=== PATIENT | female | born 1985 | race Caucasian/White ===

== ENCOUNTER 2018-02-06 19:51 | Emergency (ER) | payer OTHER ==
[2018-02-06 20:54] LABS: Absolute Lymphocytes (CBC) 2.1 K/uL (0.7-4.9); Absolute Neutrophil 8.8 K/uL (1.8-8.0); Basophils % 0.6 % (0-1.3); Eosinophils % 0.1 % (0-4.4); Hematocrit 59.6 % (36.0-45.0); Lymphocytes % 17.8 % (15.3-44.8); MCH 31.5 pg (27.0-35.0); MCV 92.2 fL (80-100); MPV 9.3 fL (7.6-11.3); Monocytes % 8.2 % (3.3-12.3); RBC Red Blood Cell Count 6.46 M/uL (3.86-4.86)
[2018-02-06] MEDS ORDERED: DICYCLOMINE HCL 10 MG CAP ONE (21:09)
[2018-02-06] MEDS ORDERED: ONDANSETRON 4 MG/2 ML VIAL ONE (21:10)
[2018-02-06] MEDS ORDERED: NA CHLORIDE 0.9% 1,000 ML ONE ×2 (21:10→22:43)
--- NOTE | 2018-02-06 21:17 | RAD REPORT ---
EXAM DESCRIPTION: US - Abdomen Exam Limited - 02/06/2018 9:00 pm CLINICAL HISTORY: Abdominal pain. COMPARISON: None. FINDINGS: The gallbladder wall is not thickened. A gallstone is not seen. The biliary tree is normal caliber. IMPRESSION: Unremarkable gallbladder ultrasound.
[2018-02-06 21:24] LABS: Albumin 4.5 g/dL (3.4-5.0); Bilirubin Direct 0.3 mg/dL (0-0.2); Bilirubin Total 1.1 mg/dL (0.2-1.0); Potassium 3.3 mmol/L (3.5-5.1); Protein, Total 8.4 g/dL (6.4-8.2)
[2018-02-06] MEDS ORDERED: PROMETHAZINE 25 MG/ML VIAL ONE (22:43)
--- NOTE | 2018-02-06 23:34 | ER ---
Nurse's Notes [facility] Name: Rochelle Weir Age: 32 yrs Sex: Female : 1985 Arrival Date: 02/06/2018 Time: 20:04 Bed 17 Private MD: Diagnosis: Vomiting, unspecified;Diarrhea, unspecified Presentation: 02/06 20:20 Presenting complaint: Patient states: Reports upper abdominal pain with N/V for 1 week. aj Transition of care: patient was not received from another setting of care. Onset of symptoms was January 30, 2018. Risk Assessment: Do you want to hurt yourself or someone else? Patient reports no desire to harm self or others. Initial Sepsis Screen: Does the patient meet any 2 criteria? No. Patient's initial sepsis screen is negative. Does the patient have a suspected source of infection? No. Patient's initial sepsis screen is negative. Care prior to arrival: None. 20:20 Method Of Arrival: Ambulatory aj 20:20 Acuity: TRAV 3 aj Triage Assessment: 20:21 General: Appears in no apparent distress. comfortable, Behavior is calm, cooperative, aj appropriate for age. Pain: Complains of pain in right upper quadrant and left upper quadrant. Neuro: Level of Consciousness is awake, alert, obeys commands, Oriented to person, place, time, situation, Appropriate for age. Respiratory: Airway is patent Respiratory effort is even, unlabored, Respiratory pattern is regular, symmetrical. GI: Reports upper abdominal pain, nausea, vomiting. GI: Reports diarrhea. Derm: Skin is intact, is healthy with good turgor, Skin is pink, warm \T\ dry. normal. 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 - Social history:: Smoking status: Patient uses tobacco products, smokes one pack cigarettes per day. Patient uses alcohol, on a daily basis. - Ebola Screening: : Patient negative for fever greater than or equal to 101.5 degrees Fahrenheit, and additional compatible Ebola Virus Disease symptoms Patient denies exposure to infectious person Patient denies travel to an Ebola-affected area in the 21 days before illness onset No symptoms or risks identified at this time. Screenin:43 Abuse screen: Denies threats or abuse. Nutritional screening: No deficits noted. jd3 Tuberculosis screening: No symptoms or risk factors identified. Fall Risk IV access (20 points). Ambulatory Aid- None/Bed Rest/Nurse Assist (0 pts). Gait- Normal/Bed Rest/Wheelchair (0 pts) Mental Status- Oriented to own ability (0 pts). Total Palmer Fall Scale indicates No Risk (0-24 pts). Assessment: 20:41 General: Appears in no apparent distress. uncomfortable, Behavior is calm, cooperative, jd3 appropriate for age. Pain: Complains of pain in abdomen and left upper quadrant and right upper quadrant Quality of pain is described as crampy. Neuro: Level of Consciousness is awake, alert, obeys commands, Oriented to person, place, time, situation. Cardiovascular: Capillary refill < 3 seconds Patient's skin is warm and dry. Respiratory: Airway is patent Respiratory effort is even, unlabored, Respiratory pattern is regular, symmetrical. GI: Abdomen is round non-distended, Bowel sounds present X 4 quads. Abd is soft X 4 quads Reports upper abdominal pain, diarrhea, nausea, vomiting. : No signs and/or symptoms were reported regarding the genitourinary system. EENT: No signs and/or symptoms were reported regarding the EENT system. Derm: Skin is intact, Skin is dry, Skin is normal, Skin temperature is warm. Musculoskeletal: Circulation, motion, and sensation intact. Range of motion: intact in all extremities. 21:09 Reassessment: Patient appears in no apparent distress at this time. Patient and/or jd3 family updated on plan of care and expected duration. Pain level reassessed. Patient is alert, oriented x 3, equal unlabored respirations, skin warm/dry/pink. 22:06 Reassessment: Patient appears in no apparent distress at this time. Patient and/or jd3 family updated on plan of care and expected duration. Pain level reassessed. Patient is alert, oriented x 3, equal unlabored respirations, skin warm/dry/pink. 23:17 Reassessment: Patient appears in no apparent distress at this time. Patient and/or jd3 family updated on plan of care and expected duration. Pain level reassessed. Patient is alert, oriented x 3, equal unlabored respirations, skin warm/dry/pink. Patient states feeling better. 02/07 00:15 Reassessment: Patient appears in no apparent distress at this time. Patient and/or jd3 family updated on plan of care and expected duration. Pain level reassessed. Patient is alert, oriented x 3, equal unlabored respirations, skin warm/dry/pink. Patient states feeling better. Vital Signs: 02/06 20:21 BP 135 / 92; Pulse 69; Resp 20; Temp 99.4; Pulse Ox 99% on R/A; Weight 83.91 kg; Height aj 5 ft. 6 in. (167.64 cm); 21:12 BP 126 / 83; Pulse 69; Resp 17 S; Pulse Ox 98% ; jd3 22:06 BP 124 / 92; Pulse 65; Resp 18 S; Pulse Ox 98% on R/A; jd3 23:17 BP 128 / 78; Pulse 72; Resp 16 S; Pulse Ox 98% on R/A; Pain 4/10; jd3 20:21 Body Mass Index 29.86 (83.91 kg, 167.64 cm) aj ED Course: 20:04 Patient arrived in ED. am2 20:20 Triage completed. aj 20:21 Arm band placed on right wrist. aj 20:25 Torrey Grimaldo, RN is Primary Nurse. jd3 20:26 Verónica Espinal FNP-C is PHCP. snw 20:26 Elmo Lopez MD is Attending Physician. snw 20:35 Inserted saline lock: 20 gauge in right antecubital area, using aseptic technique. jd3 Blood collected. 20:43 Patient has correct armband on for positive identification. Bed in low position. Call jd3 light in reach. Side rails up X 1. Adult w/ patient. 20:53 Ultrasound completed. Patient tolerated well. Patient moved back from ultrasound. cy 21:01 US Abdomen Limited In Process Unspecified. EDMS 02/07 00:14 No provider procedures requiring assistance completed. IV discontinued, intact, jd3 bleeding controlled, No redness/swelling at site. Pressure dressing applied. Administered Medications: 02/06 21:07 Drug: NS 0.9% 1000 ml Route: IV; Rate: 1 bolus; Site: right antecubital; jd3 23:47 Follow up: Response: No adverse reaction; IV Status: Completed infusion jd3 21:07 Drug: Bentyl 20 mg Route: PO; jd3 23:48 Follow up: Response: No adverse reaction jd3 21:08 Drug: Zofran 4 mg Route: IVP; Site: right antecubital; jd3 23:47 Follow up: Response: No adverse reaction jd3 22:40 Drug: NS 0.9% 1000 ml Route: IV; Rate: 1 bolus; Site: right antecubital; cc3 23:48 Follow up: Response: No adverse reaction; IV Status: Completed infusion jd3 22:40 Drug: Phenergan 25 mg Route: IVP; Site: right antecubital; cc3 23:48 Follow up: Response: No adverse reaction jd3 23:47 Drug: TORadol 30 mg Route: IVP; Site: right antecubital; jd3 23:48 Follow up: Response: No adverse reaction jd3 Outcome: 23:34 Discharge ordered by MD. barrett 02/07 00:14 Discharged to home ambulatory, with family. jd3 Condition: stable Discharge instructions given to patient, family, Instructed on discharge instructions, follow up and referral plans. medication usage, Demonstrated understanding of instructions, follow-up care, medications, Prescriptions given X 2. 00:15 Patient left the ED. jd3 Signatures: Dispatcher [employer] Renetta Rossi, RN Verónica Reich, PROFESSOR OF SPANISH-C PROFESSOR OF SPANISH-Csnw Renetta Boyer amTorrey Roberson RN RN jd3 Yong, Chheannith cy Cordel, Charlene cc3 Corrections: (The following items were deleted from the chart) 02/06 23:19 23:17 BP 128 / 78; Pulse 72bpm; Resp 16bpm; Spontaneous; Pulse Ox 98% RA; jd3 jd3
--- NOTE | 2018-02-06 23:35 | EDPHYS ---
Physician Documentation [facility] Name: Rochelle Weir Age: 32 yrs Sex: Female : 1985 Arrival Date: 02/06/2018 Time: 20:04 Bed 17 Private MD: ED Physician Elmo Lopez HPI: 02/06 20:48 This 32 yrs old Female presents to ER via Ambulatory with complaints of snw Vomiting, Abdominal Pain. 20:48 The patient presents to the emergency department with nausea, vomiting, diarrhea, snw abdominal pain, described as crampy. Onset: The symptoms/episode began/occurred suddenly, 4 day(s) ago, and became persistent. Possible causes: unknown. The symptoms are aggravated by food . Severity of symptoms: At their worst the symptoms were moderate in the emergency department the symptoms are unchanged. The patient has not experienced similar symptoms in the past. The patient has not recently seen a physician. 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 - Social history:: Smoking status: Patient uses tobacco products, smokes one pack cigarettes per day. Patient uses alcohol, on a daily basis. - Ebola Screening: : Patient negative for fever greater than or equal to 101.5 degrees Fahrenheit, and additional compatible Ebola Virus Disease symptoms Patient denies exposure to infectious person Patient denies travel to an Ebola-affected area in the 21 days before illness onset No symptoms or risks identified at this time. ROS: 20:48 Constitutional: Negative for fever, chills, and weight loss, Eyes: Negative for injury, snw pain, redness, and discharge, ENT: Negative for injury, pain, and discharge, Neck: Negative for injury, pain, and swelling, Cardiovascular: Negative for chest pain, palpitations, and edema, Respiratory: Negative for shortness of breath, cough, wheezing, and pleuritic chest pain, Abdomen/GI: Positive for abdominal pain, nausea, vomiting, diarrhea, negative for constipation, Back: Negative for injury and pain, : Negative for injury, bleeding, discharge, and swelling, MS/Extremity: Negative for injury and deformity, Skin: Negative for injury, rash, and discoloration, Neuro: Negative for headache, weakness, numbness, tingling, and seizure. Exam: 20:50 Constitutional: This is a well developed, well nourished patient who is awake, alert, snw and in no acute distress. Head/Face: Normocephalic, atraumatic. Eyes: Pupils equal round and reactive to light, extra-ocular motions intact. Lids and lashes normal. Conjunctiva and sclera are non-icteric and not injected. Cornea within normal limits. Periorbital areas with no swelling, redness, or edema. ENT: Nares patent. No nasal discharge, no septal abnormalities noted. Tympanic membranes are normal and external auditory canals are clear. Oropharynx with no redness, swelling, or masses, exudates, or evidence of obstruction, uvula midline. Mucous membranes moist. Neck: Trachea midline, no thyromegaly or masses palpated, and no cervical lymphadenopathy. Supple, full range of motion without nuchal rigidity, or vertebral point tenderness. No Meningismus. Chest/axilla: Normal chest wall appearance and motion. Nontender with no deformity. No lesions are appreciated. Cardiovascular: Regular rate and rhythm with a normal S1 and S2. No gallops, murmurs, or rubs. Normal PMI, no JVD. No pulse deficits. Respiratory: Lungs have equal breath sounds bilaterally, clear to auscultation and percussion. No rales, rhonchi or wheezes noted. No increased work of breathing, no retractions or nasal flaring. Back: No spinal tenderness. No costovertebral tenderness. Full range of motion. Skin: Warm, dry with normal turgor. Normal color with no rashes, no lesions, and no evidence of cellulitis. MS/ Extremity: Pulses equal, no cyanosis. Neurovascular intact. Full, normal range of motion. Neuro: Awake and alert, GCS 15, oriented to person, place, time, and situation. Cranial nerves II-XII grossly intact. Motor strength 5/5 in all extremities. Sensory grossly intact. Cerebellar exam normal. Normal gait. Psych: Awake, alert, with orientation to person, place and time. Behavior, mood, and affect are within normal limits. 20:50 Abdomen/GI: Inspection: abdomen appears normal, Bowel sounds: hyperactive, in all quadrants, Palpation: mild abdominal tenderness, in the right upper quadrant and left upper quadrant. Vital Signs: 20:21 BP 135 / 92; Pulse 69; Resp 20; Temp 99.4; Pulse Ox 99% on R/A; Weight 83.91 kg; Height aj 5 ft. 6 in. (167.64 cm); 21:12 BP 126 / 83; Pulse 69; Resp 17 S; Pulse Ox 98% ; jd3 22:06 BP 124 / 92; Pulse 65; Resp 18 S; Pulse Ox 98% on R/A; jd3 23:17 BP 128 / 78; Pulse 72; Resp 16 S; Pulse Ox 98% on R/A; Pain 4/10; jd3 20:21 Body Mass Index 29.86 (83.91 kg, 167.64 cm) aj MDM: 20:26 Patient medically screened. snw 20:53 Data reviewed: vital signs, nurses notes. Data interpreted: Pulse oximetry: on room air snw is 99 %. Interpretation: normal. ED course: US of gallbladder negative. 23:35 Counseling: I had a detailed discussion with the patient and/or guardian regarding: the snw historical points, exam findings, and any diagnostic results supporting the discharge/admit diagnosis, the presence of at least one elevated blood pressure reading (>120/80) during this emergency department visit, lab results, radiology results, the need for outpatient follow up, to return to the emergency department if symptoms worsen or persist or if there are any questions or concerns that arise at home. Special discussion: Based on the patient's Hx, exam, and Dx evaluation, there is no indication for emergent surgery or inpatient Tx. It is understood by the patient/guardian that if the Sx's persist or worsen they need to return immediately for re-evaluation. Based on the history and exam findings, there is no indication for further emergent testing or inpatient evaluation. I discussed with the patient/guardian the need to see the primary care provider for further evaluation of the symptoms. 02/06 20:25 Order name: Basic Metabolic Panel; Complete Time: 21:26 snw 02/06 20:25 Order name: CBC with Diff; Complete Time: 20:58 snw 02/06 20:25 Order name: US Abdomen Limited; Complete Time: 21:20 snw 02/06 20:25 Order name: Hepatic Function; Complete Time: 21:26 snw 02/06 20:25 Order name: Lipase; Complete Time: 21:27 snw 02/06 20:25 Order name: IV Saline Lock; Complete Time: 20:44 snw 02/06 20:25 Order name: Labs collected and sent; Complete Time: 20:44 snw Administered Medications: 21:07 Drug: NS 0.9% 1000 ml Route: IV; Rate: 1 bolus; Site: right antecubital; jd3 23:47 Follow up: Response: No adverse reaction; IV Status: Completed infusion jd3 21:07 Drug: Bentyl 20 mg Route: PO; jd3 23:48 Follow up: Response: No adverse reaction jd3 21:08 Drug: Zofran 4 mg Route: IVP; Site: right antecubital; jd3 23:47 Follow up: Response: No adverse reaction jd3 22:40 Drug: NS 0.9% 1000 ml Route: IV; Rate: 1 bolus; Site: right antecubital; cc3 23:48 Follow up: Response: No adverse reaction; IV Status: Completed infusion jd3 22:40 Drug: Phenergan 25 mg Route: IVP; Site: right antecubital; cc3 23:48 Follow up: Response: No adverse reaction jd3 23:47 Drug: TORadol 30 mg Route: IVP; Site: right antecubital; jd3 23:48 Follow up: Response: No adverse reaction jd3 Disposition: 02/07 04:10 Co-signature as Attending Physician, Elmo Lopez MD. Disposition: 02/06/18 23:34 Discharged to Home. Impression: Vomiting, unspecified, Diarrhea, unspecified. - Condition is Stable. - Discharge Instructions: Food Choices to Help Relieve Diarrhea, Adult, Dehydration, Adult, Diarrhea, Adult, Nausea and Vomiting, Adult, Rehydration, Adult. - Prescriptions for Bentyl 20 mg Oral Tablet - take 1 tablet by ORAL route every 6 hours As needed; 20 tablet. Zofran 4 mg Oral Tablet - take 1 tablet by ORAL route every 12 hours As needed; 20 tablet. - Work release form, Medication Reconciliation Form, Thank You Letter, Antibiotic Education, Prescription Opioid Use form. - Follow up: Private Physician; When: 2 - 3 days; Reason: Recheck today's complaints, Continuance of care, Re-evaluation by your physician. Follow up: Emergency Department; When: As needed; Reason: Worsening of condition. Signatures: Dispatcher [employer] Renetta Rossi, RN Verónica Reich, NARCISA MORAN-Elmo Nnuez MD MD gs Davies, Jonathon, RN RN jDestinee Longoria cc3 Corrections: (The following items were deleted from the chart) 00:15 02/06 23:34 02/06/2018 23:34 Discharged to Home. Impression: Vomiting, unspecified; jd3 Diarrhea, unspecified. Condition is Stable. Forms are Medication Reconciliation Form, Thank You Letter, Antibiotic Education, Prescription Opioid Use. Follow up: Private Physician; When: 2 - 3 days; Reason: Recheck today's complaints, Continuance of care, Re-evaluation by your physician. Follow up: Emergency Department; When: As needed; Reason: Worsening of condition. snw
[2018-02-06] MEDS ORDERED: KETOROLAC 30 MG/ML INJ ONE (23:51)
== END 2018-02-07 00:15 | disposition home or self-care (01) ==
LOC: ER 19:51
DX: R19.7 Diarrhea, unspecified (principal); F17.210 Nicotine dependence, cigarettes, uncomplicated
CPT/HCPCS: 36415; 76705; 80048; 80076; 83690; 85025; 96361; 96374; 96375; 99284; J2405; J2550; J7030

== ENCOUNTER 2019-06-12 10:29 | Emergency (ER) | payer OTHER ==
[2019-06-12] MEDS ORDERED: NA CHLORIDE 0.9% 1,000 ML ONE (10:59)
[2019-06-12] MEDS ORDERED: PROMETHAZINE INJ 25 MG/ML AMP ONE (10:59)
[2019-06-12 11:06] LABS: Absolute Lymphocytes (CBC) 1.6 K/uL (0.7-4.9); Basophils % 0.3 % (0-1.3); Lymphocytes % 11.3 % (15.3-44.8); MPV 8.6 fL (7.6-11.3); RBC Red Blood Cell Count 5.77 M/uL (3.86-4.86)
[2019-06-12 11:17] LABS: Urine Blood 2+ (NEG); Urine Glucose NEGATIVE (NEG); Urine Protein 1+ (NEG); Urine pH 7.5 (5.0-7.0)
[2019-06-12 11:22] LABS: Urine Bacteria >50 /HPF (<20); Urine Culture Reflex Order REFLEXED; Urine Mucus 3+ /HPF (NONE SEEN); Urine RBC NONE SEEN /HPF (NONE SEEN)
[2019-06-12 11:34] LABS: Albumin 4.1 g/dL (3.4-5.0); Bilirubin Direct 0.1 mg/dL (0-0.2); Bilirubin Total 0.4 mg/dL (0.2-1.0); Potassium 3.7 mmol/L (3.5-5.1); Protein, Total 7.6 g/dL (6.4-8.2)
--- NOTE | 2019-06-12 13:03 | RAD REPORT ---
EXAM DESCRIPTION: US - Transvaginal OB - 06/12/2019 12:37 pm CLINICAL HISTORY: Abd pain, + preg test here, tubal ligation, rule out ectopi COMPARISON: No comparisons TECHNIQUE: Endovaginal and limited transabdominal sonography performed. FINDINGS: Uterus is normal size. No myometrial mass. Endometrial stripe is 3 mm. No gestational sac or sac remnant. No hematoma or other endometrial finding. No blood or fluid in the cul de sac. Bilateral ovaries are identifiable with normal blood flow. No evidence for ectopic . IMPRESSION: Negative pelvic ultrasound. No evidence for intrauterine or extrauterine at th is time. Correlation can be made with serial beta HCG values with follow-up sonography as warranted.
--- NOTE | 2019-06-12 13:16 | ER ---
Nurse's Notes [facility] Name: Rochelle Weir Age: 33 yrs Sex: Female : 1985 Arrival Date: 06/12/2019 Time: 10:31 Bed 17 Private MD: Diagnosis: Vomiting, unspecified;Ectopic , unspecified Presentation: 06/11 10:32 Chief complaint: Patient states: Abdominal pain, all over, started this morning. ca1 Reports N/diarrhea. Coronavirus screen: Patient denies fever greater than 100.4F, cough, shortness of breath, or difficulty breathing. Proceed with normal triage process. Ebola Screen: Patient negative for fever greater than or equal to 101.5 degrees Fahrenheit, and additional compatible Ebola Virus Disease symptoms Patient denies exposure to infectious person. Patient denies travel to an Ebola-affected area in the 21 days before illness onset. No symptoms or risks identified at this time. Initial Sepsis Screen: Does the patient meet any 2 criteria? No. Patient's initial sepsis screen is negative. Does the patient have a suspected source of infection? No. Patient's initial sepsis screen is negative. Risk Assessment: Do you want to hurt yourself or someone else? Patient reports no desire to harm self or others. Onset of symptoms was June 12, 2019. 10:32 Method Of Arrival: Ambulatory ca1 10:32 Acuity: TRAV 3 ca1 Triage Assessment: 10:35 General: Appears in no apparent distress. uncomfortable, Behavior is agitated, anxious. bp Pain: Complains of pain in abdomen. EENT: No deficits noted. Neuro: No deficits noted. Cardiovascular: No deficits noted. Respiratory: No deficits noted. GI: Abdomen is non-distended, Reports nausea, vomiting, PT CLAIMS TO BE VOMITING, BUT ONLY SPITTING IN TRASH CAN WHILE MAKING RETCHING NOISES. : No signs and/or symptoms were reported regarding the genitourinary system. Derm: No deficits noted. Musculoskeletal: No deficits noted. 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 - Social history:: Smoking status: Patient reports the use of cigarette tobacco products, smokes one pack cigarettes per day. - Family history:: not pertinent. - Hospitalizations: : No recent hospitalization is reported. Screenin:35 Abuse screen: Denies threats or abuse. Denies injuries from another. Nutritional bp screening: No deficits noted. Tuberculosis screening: No symptoms or risk factors identified. Fall Risk None identified. Assessment: 10:35 General: SEE TRIAGE NOTE. bp 11:28 Reassessment: ADDITIONAL LABS IN PROCESS. VS STABLE ON MONITOR. bp 12:49 Reassessment: PT RETURNED FROM U/S. bp 13:09 Reassessment: PT REFUSING VS MONITORING. OB C/S PENDING FOR DISPO. bp 13:26 Reassessment: CONSENT FOR METHOTREXATE SIGNED AND WITNESSED. bp 14:23 Reassessment: PT D/C HOME AMBULATORY WITH SPOUSE, DX WITH ECTOPIC . TRANSPORT bp PENDING. Vital Signs: 10:32 BP 126 / 88; Pulse 86; Resp 17 S; Temp 97.1(TE); Pulse Ox 99% on NC; Weight 72.57 kg ca1 (R); Height 5 ft. 6 in. (167.64 cm) (R); Pain 9/10; 11:27 BP 113 / 88; Pulse 83; Resp 16; Pulse Ox 95% ; bp 13:00 bp 14:23 BP 127 / 75; Pulse 79; Resp 17; Temp 97.1; Pulse Ox 97% ; bp 10:32 Body Mass Index 25.82 (72.57 kg, 167.64 cm) ca1 13:00 PT REFUSING VS bp ED Course: 10:31 Patient arrived in ED. ag5 10:32 Arm band placed on right wrist. ca1 10:34 Triage completed. ca1 10:35 Patient has correct armband on for positive identification. Bed in low position. Call bp light in reach. Side rails up X2. 10:39 Mynor Gregory, RADHA is Primary Nurse. bp 10:42 Kwabena Fink MD is Attending Physician. rn 10:45 Inserted saline lock: 22 gauge in left antecubital area, using aseptic technique. Blood bp collected. 12:37 US Transvaginal Ob In Process Unspecified. EDMS 13:07 Inserted saline lock: 20 gauge in right forearm, using aseptic technique. Blood bp collected. 13:15 Morgan Carlson MD is Referral Physician. rn 14:23 No provider procedures requiring assistance completed. IV discontinued, intact, bp bleeding controlled, No redness/swelling at site. Pressure dressing applied. Administered Medications: 10:55 Drug: NS 0.9% 1000 ml Route: IV; Rate: 1000 ml; Site: left antecubital; bp 14:26 Follow up: IV Status: Completed infusion; IV Intake: 1000ml bp 10:55 Drug: Phenergan 12.5 mg Route: IVP; Site: left antecubital; bp 13:09 Follow up: Response: Nausea is decreased bp 13:22 Drug: Zofran (Ondansetron) 4 mg Route: IVP; Site: right forearm; bp 13:45 Follow up: Response: Nausea is decreased bp 13:44 Drug: Methotrexate 75 mg Route: IM; Site: left gluteus; bp 14:25 Follow up: Response: No adverse reaction bp Intake: 14:26 IV: 1000ml; Total: 1000ml. bp Outcome: 13:15 Discharge ordered by MD. rn 14:23 Discharged to home ambulatory, with family. bp 14:23 Condition: stable 14:23 Discharge instructions given to patient, Instructed on discharge instructions, follow up and referral plans. medication usage, Demonstrated understanding of instructions, follow-up care, medications, Prescriptions given X 1. 14:44 Patient left the ED. bp Signatures: Dispatcher [employer] EDMS Kwabena Fink MD MD rn Peltier, Brian, RN RN bp Acob, Cheryl, RN RN ca1 Gaskin, Ajare ag5
--- NOTE | 2019-06-12 13:16 | EDPHYS ---
Physician Documentation [facility] Name: Rochelle Weir Age: 33 yrs Sex: Female : 1985 Arrival Date: 06/12/2019 Time: 10:31 Bed 17 Private MD: ED Physician Kwabena Fink HPI: 06/11 11:20 This 33 yrs old Female presents to ER via Ambulatory with complaints of rn Abdominal Pain, nausea/vomiting/diarrhea. 11:20 The patient presents to the emergency department with nausea, vomiting, diarrhea, rn abdominal pain, of the suprapubic area. Onset: The symptoms/episode began/occurred yesterday. Possible causes: unknown. The symptoms are aggravated by nothing. The symptoms are alleviated by nothing. Severity of symptoms: At their worst the symptoms were moderate in the emergency department the symptoms have improved. The patient has not experienced similar symptoms in the past. Reports abdominal pain, suprapubic, crampy, now improved, + nausea and vomiting, + some diarrhea, no fever, no trauma. Reports tubal ligation, was 2 weeks late on her period, but then bled for a few days longer than normal. No vaginal discharge. . 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 - Social history:: Smoking status: Patient reports the use of cigarette tobacco products, smokes one pack cigarettes per day. - Family history:: not pertinent. - Hospitalizations: : No recent hospitalization is reported. ROS: 11:20 Constitutional: Negative for fever, chills, and weight loss, Eyes: Negative for injury, rn pain, redness, and discharge, ENT: Negative for injury, pain, and discharge, Neck: Negative for injury, pain, and swelling, Cardiovascular: Negative for chest pain, palpitations, and edema, Respiratory: Negative for shortness of breath, cough, wheezing, and pleuritic chest pain, Abdomen/GI: + lower abd pain, + nausea/vomiting/diarrhea MS/Extremity: Negative for injury and deformity, Skin: Negative for injury, rash, and discoloration, Neuro: Negative for headache, weakness, numbness, tingling, and seizure. Exam: 11:20 Constitutional: This is a well developed, well nourished patient who is awake, alert, rn vomiting Head/Face: Normocephalic, atraumatic. ENT: MMM Cardiovascular: Regular rate and rhythm. No pulse deficits. Respiratory: Speaking full sentences. No increased work of breathing, no retractions or nasal flaring. Abdomen/GI: soft, + mild suprapubic tenderness, no rebound Skin: Warm, dry MS/ Extremity: Pulses equal, no cyanosis. Neurovascular intact. Full, normal range of motion. Equal circumference. Neuro: Awake and alert, GCS 15 Vital Signs: 10:32 BP 126 / 88; Pulse 86; Resp 17 S; Temp 97.1(TE); Pulse Ox 99% on NC; Weight 72.57 kg ca1 (R); Height 5 ft. 6 in. (167.64 cm) (R); Pain 9/10; 11:27 BP 113 / 88; Pulse 83; Resp 16; Pulse Ox 95% ; bp 13:00 bp 14:23 BP 127 / 75; Pulse 79; Resp 17; Temp 97.1; Pulse Ox 97% ; bp 10:32 Body Mass Index 25.82 (72.57 kg, 167.64 cm) ca1 13:00 PT REFUSING VS bp MDM: 10:42 Patient medically screened. rn 13:13 Differential diagnosis: viral gastroenteritis, ectopic . Data reviewed: vital rn signs, nurses notes, lab test result(s), radiologic studies, ultrasound, and as a result, I will discharge patient. Counseling: I had a detailed discussion with the patient and/or guardian regarding: the historical points, exam findings, and any diagnostic results supporting the discharge/admit diagnosis, lab results, radiology results, the need for outpatient follow up, to return to the emergency department if symptoms worsen or persist or if there are any questions or concerns that arise at home. Special discussion: I discussed with the patient/guardian in detail that at this point there is no indication for admission to the hospital. It is understood, however, that if the symptoms persist or worsen the patient needs to return immediately for re-evaluation. Based on the history and exam findings, there is no indication for further emergent testing or inpatient evaluation. I discussed with the patient/guardian the need to see the OB Gyne specialist for further evaluation of the symptoms. ED course: Consulted with Dr. Carlson, who recommends Methotrexate given has had tubal ligation and even though u/s negative most likely indicated ectpic . patient does not wish to be , consented for methotrexate, and will give methotrexate. Plan is to f/u with Dr. Carlson on Saturday/Saturday to reeval and trend beta-hcg.. 06/11 10:47 Order name: Basic Metabolic Panel; Complete Time: 12:20 06/11 10:47 Order name: CBC with Diff; Complete Time: 11:19 rn 06/11 10:47 Order name: Creatinine for Radiology; Complete Time: 11:19 06/11 10:47 Order name: Hepatic Function; Complete Time: 12:20 06/11 10:47 Order name: Lipase; Complete Time: 12:20 06/11 10:47 Order name: Urine Microscopic Only; Complete Time: 12:20 06/11 11:13 Order name: HCG, Quantitative; Complete Time: 12:20 [facility] 06/11 11:14 Order name: Urine Dipstick--Ancillary (enter results); Complete Time: 11:19 06/11 11:14 Order name: Urine --Ancillary (enter results); Complete Time: 11:19 06/11 11:23 Order name: Urine Culture [facility] 06/11 11:27 Order name: US Transvaginal Ob; Complete Time: 13:07 06/11 12:43 Order name: Abo/rh Typing 06/11 14:01 Order name: ABO/RH no charge [facility] 06/11 10:47 Order name: IV Saline Lock; Complete Time: 10:51 06/11 10:47 Order name: Labs collected and sent; Complete Time: 10:51 rn 06/11 10:47 Order name: Urine Test (obtain specimen); Complete Time: 11: 06/11 10:47 Order name: Urine Dipstick-Ancillary (obtain specimen); Complete Time: 11:01 rn Administered Medications: 10:55 Drug: NS 0.9% 1000 ml Route: IV; Rate: 1000 ml; Site: left antecubital; bp 14:26 Follow up: IV Status: Completed infusion; IV Intake: 1000ml bp 10:55 Drug: Phenergan 12.5 mg Route: IVP; Site: left antecubital; bp 13:09 Follow up: Response: Nausea is decreased bp 13:22 Drug: Zofran (Ondansetron) 4 mg Route: IVP; Site: right forearm; bp 13:45 Follow up: Response: Nausea is decreased bp 13:44 Drug: Methotrexate 75 mg Route: IM; Site: left gluteus; bp 14:25 Follow up: Response: No adverse reaction bp Disposition: 06/12/19 13:15 Discharged to Home. Impression: Vomiting, unspecified, Ectopic , unspecified. - Condition is Stable. - Discharge Instructions: Nausea and Vomiting, Adult, Ectopic , Methotrexate Treatment for an Ectopic . - Prescriptions for Zofran ODT 4 mg Oral tablet,disintegrating - place 1 tablet by TRANSLINGUAL route every 8 hours As needed; 20 tablet. - Medication Reconciliation Form, Thank You Letter, Antibiotic Education, Prescription Opioid Use form. - Follow up: Morgan Carlson MD; When: 1 week; Reason: Recheck today's complaints, Continuance of care, Re-evaluation by your physician. - Problem is new. - Symptoms have improved. Signatures: Dispatcher [employer] [facility] Kwabena Fink MD MD rn Peltier, Brian RN RN Audra Rosado RN RN ca1 Corrections: (The following items were deleted from the chart) 11:14 11:09 QUANTITATIVE HCG+C.LAB.BRZ ordered. [facility] 14:44 13:15 06/12/2019 13:15 Discharged to Home. Impression: Vomiting, unspecified; Ectopic bp , unspecified. Condition is Stable. Forms are Medication Reconciliation Form, Thank You Letter, Antibiotic Education, Prescription Opioid Use. Follow up: Morgan Carlson; When: 1 week; Reason: Recheck today's complaints, Continuance of care, Re-evaluation by your physician. Problem is new. Symptoms have improved. rn
[2019-06-12] MEDS ORDERED: ONDANSETRON 4 MG/2 ML VIAL ONE (13:26)
[2019-06-12] MEDS ORDERED: METHOTREXATE 25 MG/ML VIAL IM ONE (13:45)
[2019-06-12 14:54] VITALS: TEMP 97.1
[2019-06-12 14:57] VITALS: BP 127/75; O2SAT 97
== END 2019-06-12 14:44 | disposition home or self-care (01) ==
LOC: ER 10:29
DX: R10.9 Unspecified abdominal pain (principal); R11.10 Vomiting, unspecified; F17.290 Nicotine dependence, other tobacco product, uncomplicated
CPT/HCPCS: 96361; 87088; 85025; 87086; 80048; 36415; 86900; 81025; 86901; 80076; 84702; 83690; 76817; 96375; 96372; 96374; 99284; J2550; J7030; J9260; J2405; 81003; 81015

== ENCOUNTER 2020-05-18 20:40 | Emergency (ER) | payer OTHER ==
--- NOTE | 2020-05-18 22:07 | ER ---
Nurse's Notes [facility] Name: Rochelle Weir Age: 34 yrs Sex: Female : 1985 Arrival Date: 05/18/2020 Time: 20:45 Bed 26 Private MD: Diagnosis: Presentation: 05/18 20:56 Chief complaint: Patient states: My son, me and my has this stomach bug since ca1 Saturday, theirs have cleared up and I am still vomiting until now. Everything I eat and drink I throw right back up. I have constant cramping on my upper belly. Had some diarrhea until Saturday night. 20:56 Method Of Arrival: Ambulatory ca1 20:58 Coronavirus screen: Client denies travel out of the [place] in the last 14 days. diarrhea, ca1 vomiting. Client presents with at least one sign or symptom that may indicate coronavirus-19. Standard/surgical mask placed on the client. Provider contacted for isolation considerations. Ebola Screen: Patient negative for fever greater than or equal to 101.5 degrees Fahrenheit, and additional compatible Ebola Virus Disease symptoms Patient denies exposure to infectious person. Patient denies travel to an Ebola-affected area in the 21 days before illness onset. No symptoms or risks identified at this time. Initial Sepsis Screen: Does the patient meet any 2 criteria? No. Patient's initial sepsis screen is negative. Does the patient have a suspected source of infection? No. Patient's initial sepsis screen is negative. Risk Assessment: Do you want to hurt yourself or someone else? Patient reports no desire to harm self or others. Onset of symptoms was May 18, 2020. 20:58 Acuity: TRAV 3 ca1 22:06 Note Called pt's cell phone, call went to . 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 - Social history:: Smoking status: Patient reports the use of cigarette tobacco products, smokes one pack cigarettes per day. Vital Signs: 20:58 BP 143 / 91; Pulse 63; Resp 16 S; Temp 98.9(TE); Pulse Ox 99% on R/A; Weight 77.11 kg ca1 (R); Height 5 ft. 6 in. (167.64 cm) (R); Pain 7/10; 20:58 Body Mass Index 27.44 (77.11 kg, 167.64 cm) ca1 ED Course: 20:45 Patient arrived in ED. es 21:00 Triage completed. ca1 21:00 Arm band placed on right wrist. ca1 21:37 Moon Jackman FNP-C is PHCP. kb 21:37 Armen Bustillo MD is Attending Physician. kb 22:02 Mark Otto, RN is Primary Nurse. em 22:06 Patient's name was called from ER lobby. No response. Unable to locate patient. Will em disposition as left without being seen by a provider. Administered Medications: No medications were administered Outcome: 22:07 Patient left the ED. em Signatures: Moon Jackman FNP-C FNP-Ckb Salyer, Edna es Munoz, Edgar, RADHA RN em Audra Dickinson RN RN ca1 Corrections: (The following items were deleted from the chart) 21:00 20:56 Chief complaint: Patient states: My son, me and my has this stomach bug ca1 since Saturday, there's cleared up and I am still vomiting until now ca1
[2020-05-19 01:41] VITALS: BP 143/91; TEMP 98.9; O2SAT 99
== END 2020-05-18 22:07 | disposition left against medical advice (07) ==
LOC: ER 20:40
DX: R11.10 Vomiting, unspecified (principal); R10.10 Upper abdominal pain, unspecified; F17.210 Nicotine dependence, cigarettes, uncomplicated; Z53.21 Procedure and treatment not carried out due to patient leaving prior to being seen by health care provider
CPT/HCPCS: 99281

== ENCOUNTER 2021-02-16 06:02 | Emergency (ER) | payer OTHER ==
[2021-02-16] MEDS ORDERED: MORPHINE 4 MG/ML SYR ONE (06:30)
[2021-02-16] MEDS ORDERED: ONDANSETRON 4 MG/2 ML VIAL ONE (06:30)
[2021-02-16] MEDS ORDERED: NA CHLORIDE 0.9% 1,000 ML ONE (06:30)
[2021-02-16 06:38] LABS: Urine Blood Trace-intact (Negative); Urine Glucose Negative (Negative); Urine Protein 1+ (Negative); Urine Specific Gravity 1.025 (1.005-1.030)
[2021-02-16 06:39] LABS: Absolute Lymphocytes (CBC) 2.1 K/uL (0.7-4.9); Basophils % 0.4 % (0-1.3); Hematocrit 59.4 % (36.0-45.0); Lymphocytes % 19.6 % (15.3-44.8); MPV 8.3 fL (7.6-11.3); RBC Red Blood Cell Count 6.04 M/uL (3.86-4.86)
[2021-02-16 06:55] LABS: Albumin 4.3 g/dL (3.4-5.0); Bilirubin Direct 0.2 mg/dL (0-0.2); Bilirubin Total 0.6 mg/dL (0.2-1.0); Potassium 3.6 mmol/L (3.5-5.1); Protein, Total 8.6 g/dL (6.4-8.2)
--- NOTE | 2021-02-16 07:59 | RAD REPORT ---
EXAM DESCRIPTION: CTAbdomen Pelvis W Contrast - 02/16/2021 7:41 am CLINICAL HISTORY: ABD PAIN COMPARISON: No comparisons TECHNIQUE: CT of the abdomen and pelvis was performed. All CT scans are performed using dose optimization technique as appropriate and may include automated exposure control or mA/KV adjustment according to patient size. FINDINGS: Lower chest: No acute abnormality. Liver: No acute abnormality or suspicious lesions. Biliary: No biliary ductal dilatation. Stomach: No significant focal abnormality. Duodenum: No significant focal abnormality. Pancreas: No significant abnormality. Spleen: No significant abnormality. Adrenal: No suspicious lesions. Kidney/ureter: No hydronephrosis. No renal calculi. Retroperitoneum: No retroperitoneal adenopathy. Vascular: No aneurysm. Bowel: No significant focal abnormality. Peritoneum: No ascites or free air. Normal appendix. Bladder: Grossly unremarkable. Reproductive: No adnexal masses. Bones: No acute fracture. Other: n/a IMPRESSION: No acute intra-abdominal or pelvic finding. Normal appendix.
[2021-02-16 08:28] LABS: Urine Specific Gravity/Preg 1.025 (1.005-1.030)
[2021-02-16] MEDS ORDERED: DIPHENHYDRAMINE 50 MG/ML VIAL ONE (08:46)
[2021-02-16] MEDS ORDERED: DICYCLOMINE HCL 20 MG/2 ML AMP IM ONE (08:46)
[2021-02-16] MEDS ORDERED: METOCLOPRAMIDE 10 MG/2mL INJ ONE (08:46)
--- NOTE | 2021-02-16 09:07 | ER ---
Nurse's Notes [facility] Name: Rochelle Weir Age: 35 yrs Sex: Female : 1985 Arrival Date: 02/16/2021 Time: 06:04 Bed 17 Private MD: Diagnosis: Abdominal pain, unspecified;Vomiting Presentation: 02/16 06:19 Chief complaint: Patient states: she started having abdominal pain, vomiting, and bb diarrhea since yesterday pain is in the epigastric area and is 10/10. Coronavirus screen: At this time, the client does not indicate any symptoms associated with coronavirus-19. Ebola Screen: No symptoms or risks identified at this time. Initial Sepsis Screen: Does the patient meet any 2 criteria? No. Patient's initial sepsis screen is negative. Does the patient have a suspected source of infection? No. Patient's initial sepsis screen is negative. Risk Assessment: Do you want to hurt yourself or someone else? Patient reports no desire to harm self or others. Onset of symptoms was February 15, 2021. 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 - Social history:: Smoking status: Patient reports the use of cigarette tobacco products, smokes one pack cigarettes per day. Screenin:15 Abuse screen: Denies threats or abuse. Nutritional screening: No deficits noted. bb Tuberculosis screening: No symptoms or risk factors identified. Fall Risk None identified. Assessment: 06:15 General: Appears uncomfortable, ill, Behavior is cooperative, anxious. Pain: Complains bb of pain in epigastric area Pain currently is 10 out of 10 on a pain scale. Neuro: Level of Consciousness is awake, alert, obeys commands, Oriented to person, place, time, situation. Cardiovascular: Capillary refill < 3 seconds Patient's skin is warm and dry. Respiratory: Airway is patent Respiratory effort is even, unlabored, Respiratory pattern is regular. GI: Bowel sounds present X 4 quads. Abd is soft X 4 quads. Derm: Skin is pink, warm \T\ dry. Musculoskeletal: Circulation, motion, and sensation intact. Vital Signs: 06:11 BP 157 / 106; Pulse 73; Resp 16; Temp 97.8; Pulse Ox 98% ; lt3 06:19 BP 140 / 102; Pulse 62; Resp 18 S; Temp 98.1(O); Pulse Ox 98% on R/A; Weight 74.84 kg bb (R); Height 5 ft. 6 in. (167.64 cm) (R); Pain 10/10; 06:59 BP 131 / 89; Pulse 86; Resp 16; Temp 98.3(TE); Pulse Ox 99% ; lt3 07:00 BP 142 / 90; Pulse 66; Resp 17 S; Pulse Ox 99% on R/A; jg9 07:30 BP 146 / 87; Pulse 68; Resp 14 S; Pulse Ox 98% on R/A; jg9 08:45 BP 143 / 90; Pulse 70; Resp 14 S; Pulse Ox 96% on R/A; jg9 06:19 Body Mass Index 26.63 (74.84 kg, 167.64 cm) ED Course: 06:00 Initial lab(s) drawn, by nh, sent to lab. Urine collected: clean catch specimen, alona bb colored. Inserted saline lock: 18 gauge in right antecubital area, using aseptic technique. Blood collected. 06:04 Patient arrived in ED. wm 06:06 Umair Rdz PA is PHCP. jmm 06:06 Kwabena Fink MD is Attending Physician. jmm 06:15 Patient has correct armband on for positive identification. Bed in low position. Call bb light in reach. Side rails up X2. 06:21 Triage completed. bb 06:21 Arm band placed on Patient placed in an exam room, on a stretcher, on pulse oximetry. bb 06:35 Basic Metabolic Panel Sent. bb 07:03 Unique Lincoln is Primary Nurse. jg9 07:22 No apparent distress. Resting quietly. Awaiting lab results, Awaiting radiology jg9 results. Patient requests pain medication. Pt visited by Friend. 07:41 CT Abd/Pelvis - IV Contrast Only In Process Unspecified. EDMS 09:06 Whit Rose MD is Referral Physician. jmm 09:13 No provider procedures requiring assistance completed. jg9 09:14 IV discontinued. jg9 Administered Medications: 06:30 Drug: NS 0.9% 1000 ml Route: IV; Rate: 1 bolus; Site: right antecubital; bb 07:30 Follow up: IV Status: Completed infusion; IV Intake: 1000ml jg9 06:30 Drug: Zofran (Ondansetron) 4 mg Route: IVP; Site: right antecubital; bb 09:13 Follow up: Response: No adverse reaction; Nausea is decreased jg9 06:33 Drug: morphine 4 mg {Note: RASS 0.} Route: IVP; Site: right antecubital; bb 07:00 Follow up: Response: No adverse reaction; Pain is decreased jg9 08:49 Drug: diphenhydrAMINE 12.5 mg Route: IVP; Site: right forearm; jg9 09:12 Follow up: Response: No adverse reaction jg9 08:50 Drug: Reglan (metoCLOPramide) 10 mg Route: IVP; Site: right forearm; jg9 09:12 Follow up: Response: No adverse reaction; Pain is decreased jg9 08:51 Drug: Bentyl (dicyclomine) 20 mg Route: IM; Site: right deltoid; jg9 09:12 Follow up: Response: No adverse reaction; Pain is increased jg9 Intake: 07:30 IV: 1000ml; Total: 1000ml. jg9 Outcome: 09:06 Discharge ordered by . [facility] 09:13 Discharged to home ambulatory. jg9 09:13 Condition: stable 09:13 Discharge instructions given to patient, Instructed on discharge instructions, Demonstrated understanding of instructions, follow-up care. 09:20 Patient left the ED. jg9 Signatures: Dispatcher [employer] EDMS Umair Rdz PA PA jmm Ballard, Brenda, RN RN bb Marsh, Wendy wm Tran, Leah Unique Lazo jg9 Corrections: (The following items were deleted from the chart) 06:21 06:21 PSHx: None; rigo sierra
--- NOTE | 2021-02-16 09:07 | EDPHYS ---
Physician Documentation [facility] Name: Rochelle Weir Age: 35 yrs Sex: Female : 1985 Arrival Date: 02/16/2021 Time: 06:04 Bed 17 Private MD: ED Physician Kwabena Fink HPI: 02/16 06:18 This 35 yrs old Female presents to ER via Unassigned with complaints of Abdominal Pain, jmm Nausea/Vomiting. 06:18 The patient presents with abdominal pain. Onset: The symptoms/episode began/occurred jmm gradually, 1 day(s) ago. The symptoms do not radiate. Associated signs and symptoms: Pertinent positives: nausea and vomiting, diarrhea. The symptoms are described as achy. Modifying factors: The symptoms are alleviated by nothing, the symptoms are aggravated by nothing. It is unknown whether or not the patient has had similar symptoms in the past. Patient denies recent travel, recent abx use. Denies infectious exposure. . 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 - Social history:: Smoking status: Patient reports the use of cigarette tobacco products, smokes one pack cigarettes per day. ROS: 06:18 Constitutional: Negative for fever, chills, and weight loss, Cardiovascular: Negative jmm for chest pain, palpitations, and edema, Respiratory: Negative for shortness of breath, cough, wheezing, and pleuritic chest pain. 06:18 Abdomen/GI: Positive for abdominal pain, nausea and vomiting, diarrhea. 06:18 All other systems are negative. Exam: 06:18 Constitutional: This is a well developed, well nourished patient who is awake, alert, jmm and in no acute distress. Head/Face: atraumatic. Eyes: EOMI, no conjunctival erythema appreciated ENT: Moist Mucus Membranes Neck: Trachea midline, Supple Chest/axilla: Normal chest wall appearance and motion. Cardiovascular: Regular rate and rhythm. No edema appreciated Respiratory: Normal respirations, no respiratory distress appreciated 06:18 Back: Normal ROM Skin: General appearance color normal MS/ Extremity: Moves all extremities, no obvious deformities appreciated, no edema noted to the lower extremities Neuro: Awake and alert, normal gait Psych: Behavior is normal, Mood is normal, Patient is cooperative and pleasant 06:18 Abdomen/GI: Inspection: abdomen appears normal, Bowel sounds: normal, Palpation: soft, mild abdominal tenderness, in the left upper quadrant and left lower quadrant. Vital Signs: 06:11 BP 157 / 106; Pulse 73; Resp 16; Temp 97.8; Pulse Ox 98% ; lt3 06:19 BP 140 / 102; Pulse 62; Resp 18 S; Temp 98.1(O); Pulse Ox 98% on R/A; Weight 74.84 kg bb (R); Height 5 ft. 6 in. (167.64 cm) (R); Pain 10/10; 06:59 BP 131 / 89; Pulse 86; Resp 16; Temp 98.3(TE); Pulse Ox 99% ; lt3 07:00 BP 142 / 90; Pulse 66; Resp 17 S; Pulse Ox 99% on R/A; jg9 07:30 BP 146 / 87; Pulse 68; Resp 14 S; Pulse Ox 98% on R/A; jg9 08:45 BP 143 / 90; Pulse 70; Resp 14 S; Pulse Ox 96% on R/A; jg9 06:19 Body Mass Index 26.63 (74.84 kg, 167.64 cm) bb MDM: 06:15 Patient medically screened. [facility] 09:05 Data reviewed: vital signs, nurses notes. Counseling: I had a detailed discussion with [facility] the patient and/or guardian regarding: the historical points, exam findings, and any diagnostic results supporting the discharge/admit diagnosis, lab results, radiology results, the need for outpatient follow up, to return to the emergency department if symptoms worsen or persist or if there are any questions or concerns that arise at home. ED course: Patient states feeling much better. Patient is advised to follow-up with GI for further evaluation. States that she has similar episodes every few months. Patient is otherwise given strict return precautions. Patient understood agrees plan of care.. 02/16 06:17 Order name: Basic Metabolic Panel [facility] 02/16 06:17 Order name: CBC with Diff; Complete Time: 06:45 [facility] 02/16 06:17 Order name: Hepatic Function; Complete Time: 07:12 m 12 06:17 Order name: Lipase; Complete Time: 07:12 jmm 12 06:17 Order name: Basic Metabolic Panel; Complete Time: 07:12 EDMS 12/09 06:37 Order name: Urine Dipstick-Ancillary; Complete Time: 06:45 EDMS 12 06:17 Order name: CT Abd/Pelvis - IV Contrast Only; Complete Time: 08:01 jmm 02/16 06:39 Order name: Urine --Ancillary (enter results); Complete Time: 08:33 cs9 12 06:17 Order name: IV Saline Lock; Complete Time: 06:35 jmm 12 06:17 Order name: Labs collected and sent; Complete Time: 06:35 [facility] 1209 06:17 Order name: Urine Dipstick-Ancillary (obtain specimen); Complete Time: 06:35 jmm 12 06:17 Order name: Urine Test (obtain specimen); Complete Time: 06:35 jmm Administered Medications: 06:30 Drug: NS 0.9% 1000 ml Route: IV; Rate: 1 bolus; Site: right antecubital; bb 07:30 Follow up: IV Status: Completed infusion; IV Intake: 1000ml jg9 06:30 Drug: Zofran (Ondansetron) 4 mg Route: IVP; Site: right antecubital; bb 09:13 Follow up: Response: No adverse reaction; Nausea is decreased jg9 06:33 Drug: morphine 4 mg {Note: RASS 0.} Route: IVP; Site: right antecubital; bb 07:00 Follow up: Response: No adverse reaction; Pain is decreased jg9 08:49 Drug: diphenhydrAMINE 12.5 mg Route: IVP; Site: right forearm; jg9 09:12 Follow up: Response: No adverse reaction jg9 08:50 Drug: Reglan (metoCLOPramide) 10 mg Route: IVP; Site: right forearm; jg9 09:12 Follow up: Response: No adverse reaction; Pain is decreased jg9 08:51 Drug: Bentyl (dicyclomine) 20 mg Route: IM; Site: right deltoid; jg9 09:12 Follow up: Response: No adverse reaction; Pain is increased jg9 Disposition: 19:04 Co-signature as Attending Physician, Kwabena Fink MD I agree with the assessment and rn plan of care. Attestation: The patient's history, exam findings, diagnostics, and a summary of any interventions or procedures was reviewed in detail with Umair LAIRD. Disposition Summary: 02/16/21 09:06 Discharge Ordered Location: Home [facility] Condition: Stable jm Diagnosis - Abdominal pain, unspecified jmm - Vomiting jm Followup: [facility] - With: Whit Rose MD - When: 2 - 3 days - Reason: Recheck today's complaints, Continuance of care, Re-evaluation by your physician Discharge Instructions: - Discharge Summary Sheet jmm - Abdominal Pain, Adult jmm - Vomiting, Adult jmm Forms: - Medication Reconciliation Form [facility] - Thank You Letter [facility] - Antibiotic Education [facility] - Prescription Opioid Use [facility] - Family Work Release jg9 Prescriptions: - ondansetron 4 mg Oral tablet,disintegrating - place 1 tablet by TRANSLINGUAL route 3 times per day; 30 tablet; Refills: 0, [facility] Product Selection Permitted - Pepcid 20 mg Oral Tablet - take 1 tablet by ORAL route every 12 hours for 10 days; 20 tablet; Refills: 0, [facility] Product Selection Permitted - dicyclomine 20 mg Oral Tablet - take 1 tablet by ORAL route 4 times per day; 30 tablet; Refills: 0, Product [facility] Selection Permitted Signatures: Dispatcher [employer] EDUmair Epstein PA PA jmm Ballard, Brenda, RN RN bb Nieto, Roman, MD MD rn Gilmore, Jennifer jg9 Corrections: (The following items were deleted from the chart) :21 06:21 PSHx: None; rigo sierra
[2021-02-16 09:35] VITALS: TEMP 98.3
[2021-02-16 09:41] VITALS: BP 143/90; O2SAT 96
== END 2021-02-16 09:20 | disposition home or self-care (01) ==
LOC: ER 06:02
DX: R10.9 Unspecified abdominal pain (principal); R11.10 Vomiting, unspecified
CPT/HCPCS: 85025; 80048; 36415; 81025; 80076; 81003; 83690; 74177; 96372; 99284; Q9967; J2765; J0500; J1200; J7030; J2405

== ENCOUNTER 2021-09-16 17:29 | Emergency (ER) | payer OTHER ==
[2021-09-16] MEDS ORDERED: ONDANSETRON 4 MG/2 ML VIAL ONE ×2 (18:11→19:52)
[2021-09-16] MEDS ORDERED: NA CHLORIDE 0.9% 1,000 ML ONE ×2 (18:11→20:22)
[2021-09-16] MEDS ORDERED: DICYCLOMINE HCL 20 MG/2 ML AMP IM ONE (18:22)
[2021-09-16 18:25] LABS: Absolute Lymphocytes (CBC) 0.9 K/uL (0.7-4.9); Hematocrit 53.5 % (36.0-45.0); Lymphocytes % 5.9 % (15.3-44.8); MCV 96.6 fL (80-100); MPV 8.7 fL (7.6-11.3); RBC Red Blood Cell Count 5.54 M/uL (3.86-4.86)
[2021-09-16 18:42] LABS: Albumin 4.3 g/dL (3.4-5.0); Potassium 3.8 mmol/L (3.5-5.1)
[2021-09-16 19:36] LABS: Urine Blood Negative (Negative); Urine Glucose Negative (Negative); Urine Protein 1+ (Negative); Urine pH 8.5 (5.0-7.0)
[2021-09-16] MEDS ORDERED: KETOROLAC 30 MG/ML INJ ONE (19:52)
--- NOTE | 2021-09-16 20:10 | RAD REPORT ---
EXAM DESCRIPTION: CT - Abdomen Pelvis W Contrast - 09/16/2021 7:59 pm CLINICAL HISTORY: Abdominal pain COMPARISON: 2020 TECHNIQUE: Computed axial tomography of the abdomen pelvis was obtained. 100 cc Isovue-300 was admin istered intravenously. Oral contrast was not requested which limits evaluation of bowel and appendix All CT scans are performed using dose optimization technique as appropriate and may include automated exposure control or mA/KV adjustment according to patient size. FINDINGS: Couple of hepatic and splenic granulomata Pancreas, adrenal and kidneys appear unremarkable. There is no evidence of diverticulitis. Normal appendix. No adnexal mass IMPRESSION: No acute abnormality is displayed.
[2021-09-16] MEDS ORDERED: PROMETHAZINE INJ 25 MG/ML AMP ONE ×2 (20:19→22:23)
--- NOTE | 2021-09-16 21:43 | ER ---
Nurse's Notes [facility] Name: Rochelle Weir Age: 36 yrs Sex: Female : 1985 Arrival Date: 09/16/2021 Time: 17:31 Bed 12 Private MD: Diagnosis: Nausea with vomiting, unspecified;Abdominal pain, Generalized Presentation: 09/16 17:42 Chief complaint: Patient states: PATIENT REPORTS CONTINUOUS N/V AND DIARRHEA WITH ABD bh1 CRAMPING SINCE WAKING UP THIS MORNING. Coronavirus screen: Vaccine status: Patient reports being unvaccinated. diarrhea, nausea, vomiting. Client presents with at least one sign or symptom that may indicate coronavirus-19. Standard/surgical mask placed on the client. Ebola Screen: Patient negative for fever greater than or equal to 101.5 degrees Fahrenheit, and additional compatible Ebola Virus Disease symptoms. Initial Sepsis Screen: Does the patient meet any 2 criteria? No. Patient's initial sepsis screen is negative. Does the patient have a suspected source of infection? No. Patient's initial sepsis screen is negative. Risk Assessment: Do you want to hurt yourself or someone else? Patient reports no desire to harm self or others. Onset of symptoms was September 16, 2021. 17:42 Method Of Arrival: Wheelchair [facility] 17:42 Acuity: TRAV 3 [facility] Triage Assessment: 17:45 General: Appears uncomfortable, ill, Behavior is anxious. Pain: Complains of pain in [facility] abdomen. GI: Reports diarrhea, nausea, vomiting. 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 - Social history:: Smoking status: Patient reports the use of cigarette tobacco products, smokes one pack cigarettes per day. Screenin:13 Abuse screen: Denies threats or abuse. Denies injuries from another. Nutritional jg9 screening: No deficits noted. Tuberculosis screening: No symptoms or risk factors identified. Fall Risk None identified. Assessment: 18:13 GI: Bowel sounds present X 4 quads. Abd is soft X 4 quads Abdomen is tender to jg9 palpation in right upper quadrant, left upper quadrant, right lower quadrant and left lower quadrant. 19:17 Reassessment: Patient appears in no apparent distress at this time. Patient and/or jb4 family updated on plan of care and expected duration. Pain level reassessed. Patient is alert, oriented x 3, equal unlabored respirations, skin warm/dry/pink. 20:00 Reassessment: Patient appears in no apparent distress at this time. Patient and/or jb4 family updated on plan of care and expected duration. Pain level reassessed. Patient is alert, oriented x 3, equal unlabored respirations, skin warm/dry/pink. 21:08 Reassessment: Patient appears in no apparent distress at this time. Patient and/or jb4 family updated on plan of care and expected duration. Pain level reassessed. Patient is alert, oriented x 3, equal unlabored respirations, skin warm/dry/pink. 22:25 Reassessment: Patient appears in no apparent distress at this time. Patient and/or jb4 family updated on plan of care and expected duration. Pain level reassessed. Patient is alert, oriented x 3, equal unlabored respirations, skin warm/dry/pink. Patient states symptoms have improved. Vital Signs: 17:42 BP 135 / 77; Pulse 72; Resp 20; Temp 96.7(T); Pulse Ox 100% on R/A; Weight 81.65 kg [facility] (R); Height 5 ft. 6 in. (167.64 cm); Pain 10/10; 18:00 BP 139 / 84; Pulse 60; Resp 17 S; Pulse Ox 98% on R/A; jg9 19:49 BP 134 / 76; Pulse 68; Resp 16; Pulse Ox 100% on R/A; jb4 21:15 BP 143 / 94; Pulse 68; Resp 16; Pulse Ox 100% on R/A; jb4 22:25 BP 124 / 76; Pulse 78; Resp 16; Pulse Ox 99% on R/A; jb4 17:42 Body Mass Index 29.05 (81.65 kg, 167.64 cm) [facility] ED Course: 17:31 Patient arrived in ED. as 17:44 Triage completed. [facility] 17:46 Arm band placed on right wrist. [facility] 17:53 Moon Jackman FNP-Robyn is PHCP. kb 17:53 Kwabena Fink MD is Attending Physician. kb 18:02 Unique Lincoln RN is Primary Nurse. jg9 18:10 Inserted saline lock: 22 gauge in right antecubital area, using aseptic technique. jg9 Blood collected. 18:13 Patient has correct armband on for positive identification. Bed in low position. Call jg9 light in reach. Side rails up X 1. 18:41 Appears to be sleeping. jg9 20:01 CT Abd/Pelvis - IV Contrast Only In Process Unspecified. EDMS 22:25 No provider procedures requiring assistance completed. IV discontinued, intact, jb4 bleeding controlled, No redness/swelling at site. Pressure dressing applied. Administered Medications: 18:12 Drug: NS 0.9% 1000 ml Route: IV; Rate: 1 bolus; Site: right antecubital; jg9 18:12 Drug: Zofran (Ondansetron) 4 mg Route: IVP; Site: right antecubital; jg9 18:43 Follow up: Response: No adverse reaction jg9 18:21 Drug: Bentyl (dicyclomine) 20 mg Route: IM; Site: right vastus lateralis; jg9 18:42 Follow up: Response: No adverse reaction jg9 19:47 Drug: Zofran (Ondansetron) 4 mg Route: IVP; Site: right antecubital; jb4 20:22 Follow up: Response: No adverse reaction jb4 19:49 Drug: Ketorolac 15 mg Route: IVP; Site: right antecubital; jb4 20:22 Follow up: Response: No adverse reaction; Marked relief of symptoms jb4 20:17 Drug: Phenergan (promethazine) 12.5 mg Route: IVP; Site: right antecubital; jb4 22:24 Follow up: Response: No adverse reaction; Marked relief of symptoms jb4 20:22 Drug: NS 0.9% 1000 ml Route: IV; Rate: 1000 ml; Site: right antecubital; jb4 22:24 Follow up: Response: No adverse reaction; Marked relief of symptoms; IV Status: Order jb4 to discontinue infusion; IV Intake: 750ml 22:24 Drug: Phenergan (promethazine) 12.5 mg Route: IVP; Site: right antecubital; jb4 22:24 Follow up: Response: Medication administered at discharge. jb4 Medication: 22:25 VIS not applicable for this client. jb4 Intake: 22:24 IV: 750ml; Total: 750ml. jb4 Outcome: 21:41 Discharge ordered by . titi 22:25 Discharged to home ambulatory, with family. jb4 22:25 Condition: stable 22:25 Discharge instructions given to patient, Instructed on discharge instructions, follow up and referral plans. medication usage, Demonstrated understanding of instructions, follow-up care, medications, Prescriptions given X 2. 22:26 Patient left the ED. jb4 Signatures: Dispatcher [employer] EDMS Moon Jackman, MAINTENANCE SHOP CLERK-C MAINTENANCE SHOP CLERK-Vonda Dickey James, RN RN jb4 Unique Lincoln, RADHA RN jg9 Keri Ramos RN RN bh1 Corrections: (The following items were deleted from the chart) 17:45 17:42 Pulse 72bpm; Resp 20bpm; Pulse Ox 100% RA; Temp 96.7F Tympanic; 81.65 kg bh1 Reported; Height 5 ft. 6 in.; BMI: 29.0; Pain 10/10; bh1
--- NOTE | 2021-09-16 21:43 | EDPHYS ---
Physician Documentation [facility] Name: Rochelle Weir Age: 36 yrs Sex: Female : 1985 Arrival Date: 09/16/2021 Time: 17:31 Bed 12 Private MD: ED Physician Kwabena Fink HPI: 09/16 22:16 This 36 yrs old Female presents to ER via Wheelchair with complaints of Abdominal Pain, kb Vomiting/Diarrhea. 22:16 The patient has not recently seen a physician. kb 22:16 The patient presents to the emergency department with nausea, vomiting. Onset: The kb symptoms/episode began/occurred today. Possible causes: this happens occassionally. The symptoms are aggravated by nothing. The symptoms are alleviated by nothing. Associated signs and symptoms: Pertinent positives: abdominal pain, nausea, vomiting. Severity of symptoms: At their worst the symptoms were moderate in the emergency department the symptoms are unchanged. The patient has not experienced similar symptoms in the past. Pt reports nausea, vomiting and abd cramps that started today. States she has had this several times in the past and is seeing a GI to find the cause. 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 - Social history:: Smoking status: Patient reports the use of cigarette tobacco products, smokes one pack cigarettes per day. ROS: 22:16 Constitutional: Negative for fever, chills, and weight loss. kb 22:16 Abdomen/GI: Positive for nausea and vomiting, abdominal cramps. 22:16 All other systems are negative. Exam: 22:16 Constitutional: This is a well developed, well nourished patient who is awake, alert, kb and in no acute distress. Head/Face: Normocephalic, atraumatic. ENT: Moist Mucous membranes Cardiovascular: Regular rate and rhythm with a normal S1 and S2. No gallops, murmurs, or rubs. No pulse deficits. Respiratory: Respirations even and unlabored. No increased work of breathing. Talking in full sentences Abdomen/GI: Soft, non-tender. No distention Skin: Warm, dry with normal turgor. Normal color. MS/ Extremity: Pulses equal, no cyanosis. Neurovascular intact. Full, normal range of motion. Neuro: Awake and alert, GCS 15, oriented to person, place, time, and situation. Moves all extremities. Normal gait. Psych: Awake, alert, with orientation to person, place and time. Behavior, mood, and affect are within normal limits. Vital Signs: 17:42 BP 135 / 77; Pulse 72; Resp 20; Temp 96.7(T); Pulse Ox 100% on R/A; Weight 81.65 kg bh1 (R); Height 5 ft. 6 in. (167.64 cm); Pain 10/10; 18:00 BP 139 / 84; Pulse 60; Resp 17 S; Pulse Ox 98% on R/A; jg9 19:49 BP 134 / 76; Pulse 68; Resp 16; Pulse Ox 100% on R/A; jb4 21:15 BP 143 / 94; Pulse 68; Resp 16; Pulse Ox 100% on R/A; jb4 22:25 BP 124 / 76; Pulse 78; Resp 16; Pulse Ox 99% on R/A; jb4 17:42 Body Mass Index 29.05 (81.65 kg, 167.64 cm) 1 MDM: 17:53 Patient medically screened. kb 22:14 Data reviewed: vital signs, nurses notes. Data interpreted: Pulse oximetry: on room air kb is 100 %. Interpretation: normal. Counseling: I had a detailed discussion with the patient and/or guardian regarding: the historical points, exam findings, and any diagnostic results supporting the discharge/admit diagnosis, lab results, radiology results, the need for outpatient follow up, a family practitioner, a property underwriter, to return to the emergency department if symptoms worsen or persist or if there are any questions or concerns that arise at home. ED course: Discussed admission for intractable vomiting. Pt does not want to stay in the hospital. States she has been able to keep ice chips down, but is still nauseated. Has appt with GI next week. States she will return for inability to tolerate po intake. 09/16 17:53 Order name: CBC with Diff; Complete Time: 18:31 kb 09/16 17:53 Order name: CMP; Complete Time: 18:44 kb 09/16 17:53 Order name: Lipase; Complete Time: 18:44 kb 09/16 19:10 Order name: CT Abd/Pelvis - IV Contrast Only; Complete Time: 20:11 kb 09/16 19:36 Order name: Urine Dipstick-Ancillary; Complete Time: 19:49 EDMS 09/16 19:39 Order name: Urine --Ancillary (enter results); Complete Time: 21:32 ds4 09/16 17:53 Order name: IV Saline Lock; Complete Time: 18:12 kb 09/16 17:53 Order name: Labs collected and sent; Complete Time: 18:12 kb 09/16 19:19 Order name: Urine Test (obtain specimen); Complete Time: 19:38 mw2 09/16 20:23 Order name: PO challenge; Complete Time: 21:01 kb Administered Medications: 18:12 Drug: NS 0.9% 1000 ml Route: IV; Rate: 1 bolus; Site: right antecubital; jg9 18:12 Drug: Zofran (Ondansetron) 4 mg Route: IVP; Site: right antecubital; jg9 18:43 Follow up: Response: No adverse reaction jg9 18:21 Drug: Bentyl (dicyclomine) 20 mg Route: IM; Site: right vastus lateralis; jg9 18:42 Follow up: Response: No adverse reaction jg9 19:47 Drug: Zofran (Ondansetron) 4 mg Route: IVP; Site: right antecubital; jb4 20:22 Follow up: Response: No adverse reaction jb4 19:49 Drug: Ketorolac 15 mg Route: IVP; Site: right antecubital; jb4 20:22 Follow up: Response: No adverse reaction; Marked relief of symptoms jb4 20:17 Drug: Phenergan (promethazine) 12.5 mg Route: IVP; Site: right antecubital; jb4 22:24 Follow up: Response: No adverse reaction; Marked relief of symptoms jb4 20:22 Drug: NS 0.9% 1000 ml Route: IV; Rate: 1000 ml; Site: right antecubital; jb4 22:24 Follow up: Response: No adverse reaction; Marked relief of symptoms; IV Status: Order jb4 to discontinue infusion; IV Intake: 750ml 22:24 Drug: Phenergan (promethazine) 12.5 mg Route: IVP; Site: right antecubital; jb4 22:24 Follow up: Response: Medication administered at discharge. jb4 Disposition: 09/17 08:26 Co-signature as Attending Physician, Kwabena Fink MD. rn Disposition Summary: 09/16/21 21:41 Discharge Ordered Location: Home kb Condition: Stable kb Diagnosis - Nausea with vomiting, unspecified kb - Abdominal pain, Generalized kb Followup: kb - With: Emergency Department - When: As needed - Reason: Worsening of condition Followup: kb - With: Private Physician - When: 2 - 3 days - Reason: Recheck today's complaints, Continuance of care, Re-evaluation by your physician Discharge Instructions: - Discharge Summary Sheet kb - Nausea and Vomiting, Adult, [id number] kb - Abdominal Pain, Adult, [id number] kb Forms: - Medication Reconciliation Form kb - Thank You Letter kb - Antibiotic Education kb - Prescription Opioid Use kb Prescriptions: - Zofran 4 mg Oral Tablet - take 1 tablet by ORAL route every 6 hours As needed; 20 tablet; Refills: 0, kb Product Selection Permitted - dicyclomine 20 mg Oral Tablet - take 1 tablet by ORAL route 4 times per day As needed; 20 tablet; Refills: 0, kb Product Selection Permitted Signatures: Dispatcher [employer] EDMoon Cabral, TENANT SELECTOR-C TENANT SELECTOR-Kwabena Masterson MD MD rn Bryson, James, RN RN jb4 Divya Marroquin mw2 Unique Lincoln RN RN jg9 Keri Ramos RN RN bh1
[2021-09-16 23:01] VITALS: BP 124/76; O2SAT 99
[2021-09-16 23:03] VITALS: TEMP 96.7
== END 2021-09-16 22:26 | disposition home or self-care (01) ==
LOC: ER 17:29
DX: R11.2 Nausea with vomiting, unspecified (principal); R10.84 Generalized abdominal pain; F17.210 Nicotine dependence, cigarettes, uncomplicated; Z88.3 Allergy status to other anti-infective agents
CPT/HCPCS: 85025; 36415; 81025; 81003; 83690; 80053; 74177; Q9967; J2550 ×2; J0500; J7030 ×2; J2405 ×2; 96361; 96372; 96374; 96375; 99284

== ENCOUNTER 2024-02-07 17:53 | Emergency (ER) | payer OTHER ==
[2024-02-07 18:57] LABS: Absolute Basophils 0.1 K/uL (0-0.5); Absolute Lymphocytes (CBC) 2.1 K/uL (0.7-4.9); Absolute Monocytes 0.9 K/uL (0.1-1.3); Absolute Neutrophil 13.3 K/uL (1.8-8.0); Basophils % 0.6 % (0-1.3); Eosinophils % 0.1 % (0-4.4); Hemoglobin 17.4 g/dL (12.0-15.0); Lymphocytes % 12.9 % (15.3-44.8); MCH 32.8 pg (27.0-35.0); MCV 96.5 fL (80-100); MPV 8.4 fL (7.6-11.3); Monocytes % 5.3 % (3.3-12.3); Neutrophils % 81.1 % (41.7-73.7); Platelets 299 thou/uL (152-406); RBC Red Blood Cell Count 5.29 M/uL (3.86-4.86); Red Cell Distribution Width 12.8 % (12.1-15.2)
[2024-02-07] MEDS ORDERED: NA CHLORIDE 0.9% 1,000 ML ONE (19:03)
[2024-02-07] MEDS ORDERED: DICYCLOMINE HCL 20 MG/2 ML AMP IM ONE (19:03)
[2024-02-07] MEDS ORDERED: KETOROLAC 30 MG/ML INJ ONE (19:03)
[2024-02-07] MEDS ORDERED: METOCLOPRAMIDE 10 MG/2mL INJ ONE (19:03)
[2024-02-07] MEDS ORDERED: DIPHENHYDRAMINE 50 MG/ML VIAL ONE (19:03)
[2024-02-07] MEDS ORDERED: LACTULOSE 20 GM/30 ML UCUP ONE (19:04)
[2024-02-07 19:14] LABS: ALT/SGPT 15 U/L (13-56); Albumin 3.6 g/dL (3.4-5.0); Albumin/Globulin Ratio 0.8 (1.1-1.8); Alkaline Phosphatase 80 U/L (45-117); Anion Gap 14.1 mEq/L (5.0-15.0); BUN Blood Urea Nitrogen 15 mg/dL (7-18); Bicarbonate 20 mEq/L (21-32); Globulin 4.8 g/dL (2.3-3.5); Glomerular Filtration Rate 68 ml/min (=/>90); Glucose Level 193 mg/dL (74-106); Lipase 16 U/L (13-75); Potassium 3.1 mEq/L (3.5-5.1); Protein, Total 8.4 g/dL (6.4-8.2); Sodium Level 132 mEq/L (136-145)
[2024-02-07 19:18] LABS: AST/SGOT < 10 U/L (15-37)
[2024-02-07] MEDS ORDERED: FENTANYL CITR 100 MCG/2 ML ONE (19:23)
[2024-02-07 22:33] LABS: Specific Gravity > 1.030 (1.005-1.030)
[2024-02-07 22:34] LABS: Specific Gravity > 1.030 (1.005-1.030); Sqamous Epithelial <5 /HPF (None Seen); Urine Bacteria None Seen /HPF (<20); Urine Bilirubin 1+ (Negative); Urine Blood Negative (Negative); Urine Clarity Extremely Turbid (Clear); Urine Color Dark-Yellow (Yellow); Urine Culture Reflex Order NOT NEEDED; Urine Glucose TRACE (Negative); Urine Ketones 2+ (Negative); Urine Micro Reflex YN NO BILL MICROSCOPIC; Urine Mucus 4+ /HPF (None Seen); Urine Nitrite NEGATIVE (Negative); Urine Protein 2+ (Negative); Urine RBC <5 /HPF (None Seen); Urine Urobilinogen 3+ (Normal); Urine WBC Clump Rare /HPF (None Seen)
--- NOTE | 2024-02-07 23:44 | EDPHYS ---
Physician Documentation [facility] Name: Rochelle Weir Age: 38 yrs Sex: Female : 1985 Arrival Date: 02/07/2024 Time: 17:53 Bed 19 Private MD: ED Physician Demetrio Bray HPI: 02/06 19:59 This 38 yrs old Female presents to ER via Wheelchair with complaints of Abdominal Pain. rt 19:59 Patient presents to the ED with 4 days of abdominal pain. The patient states that she rt has not had a bowel movement during this time. Reports nausea without vomiting. Denies other acute complaints at this time, symptoms are moderate severity, no other aggravating alleviating factors.. Historical: - Allergies: 18:11 Clindamycin; ss - PMHx: 18:11 None; ss - PSHx: 18:11 section; ss - Immunization history:: Flu vaccine is not up to date. - Infectious Disease History:: Denies. - Social history:: Smoking status: Patient reports the use of cigarette tobacco products, smokes one pack cigarettes per day. Patient uses alcohol, occasionally. Patient uses street drugs, marijuana. - Family history:: not pertinent. ROS: 19:59 Constitutional: Negative for fever, chills, and weight loss, Cardiovascular: Negative rt for chest pain, palpitations, and edema, Respiratory: Negative for shortness of breath, cough, wheezing, and pleuritic chest pain, MS/Extremity: Negative for injury and deformity, Skin: Negative for injury, rash, and discoloration, Neuro: Negative for headache, weakness, numbness, tingling, and seizure, 19:59 Abdomen/GI: Positive for abdominal pain, constipation, Exam: 19:59 Constitutional: This is a well developed, well nourished patient who is awake, alert, rt and in no acute distress. Head/Face: Normocephalic, atraumatic. Chest/axilla: Normal chest wall appearance and motion. Nontender with no deformity. No lesions are appreciated. Cardiovascular: Regular rate and rhythm with a normal S1 and S2. No gallops, murmurs, or rubs. Normal PMI, no JVD. No pulse deficits. Respiratory: Lungs have equal breath sounds bilaterally, clear to auscultation and percussion. No rales, rhonchi or wheezes noted. No increased work of breathing, no retractions or nasal flaring. Skin: Warm, dry with normal turgor. Normal color with no rashes, no lesions, and no evidence of cellulitis. MS/ Extremity: Pulses equal, no cyanosis. Neurovascular intact. Full, normal range of motion. Neuro: Awake and alert, GCS 15, oriented to person, place, time, and situation. Cranial nerves II-XII grossly intact. Motor strength 5/5 in all extremities. Sensory grossly intact. Cerebellar exam normal. Normal gait. 19:59 Abdomen/GI: Tenderness diffusely without rebound, guarding, distention, Vital Signs: 18:09 BP 137 / 107; Pulse 143; Resp 30; Temp 98.9(O); Pulse Ox 99% on R/A; MAP 116 mmHg; ss Weight 81.65 kg; Height 5 ft. 6 in. ; Pain 10/10; 19:30 BP 152 / 93; Pulse 106; Resp 21 S; Pulse Ox 94% on R/A; Pain 10/10; br2 20:10 BP 149 / 93; Pulse 116; Resp 22 S; Pulse Ox 97% on R/A; br2 21:30 BP 151 / 94; Pulse 116; Resp 18 S; Pulse Ox 99% on R/A; br2 18:09 Body Mass Index 29.05 (81.65 kg, 167.64 cm) ss 18:09 Pain Scale: Adult ss 19:30 Pain Scale: Adult br2 MDM: 18:47 Medical Screening Exam initiated rt 23:41 ED course: CTABDOMEN PELVIS WITH IV CONTRAST Exam date: February 07, 2024 Comparison: sp4 CT abdomen pelvis September 16, 2021 Indication: Abdominal pain Technique: Multiple helical axial images were obtained through the abdomen and pelvis using intravenous contrast. Coronal and sagittal reformatted images were obtained. All CT scans at this facility use dose modulation, iterative reconstruction, and/or weight-based dosing when appropriate to reduce radiation dose to as low as reasonably achievable. Findings: Lung bases: [Mild right basilar atelectasis noted]. Liver: [There is low attenuation suggesting fatty changes.] Gallbladder/biliary: [Appears unremarkable] Pancreas: [Unremarkable. No evidence of ductal enlargement.] Spleen: Appears unremarkable. No splenomegaly. Adrenals: Unremarkable. Kidneys and ureters: [No evidence of hydronephrosis. Normal enhancement.] Bladder: Unremarkable. Pelvic organs: Unremarkable. Bowel: [There is a thickened appearance of the sigmoid colon with adjacent stranding suggesting colitis. There is a 3.6 cm x 2.5 cm (axial) by 3 cm (craniocaudal) fluid/air collection along the wall of the thickened sigmoid colon (series 201, image 70) which may be related to localized perforation, developing abscess. Thickened appearance of a few distal small bowel loops near the sigmoid colon noted suggesting reactive enteritis. There is pneumatosis involving the ascending colon. There are a few dilated distal small bowel loops which could be related to ileus or partial obstruction.] Appendix appears unremarkable. There is mesenteric haziness in the lower abdomen and pelvis compatible with inflammatory changes/edema with peritoneal enhancement/thickening. Vasculature: Unremarkable. Peritoneum: There is a trace amount of free intraperitoneal air. There is a small amount of ascites. Lymph nodes: Unremarkable. Soft tissues: Unremarkable. Bones: Unremarkable. Impression: 1. Thickened appearance of the sigmoid colon suggesting colitis with extensive adjacent inflammatory changes. Small amount of free intraperitoneal air suggesting bowel perforation. Small fluid/air collection abutting the thickened sigmoid colon may be related to localized perforation, developing abscess. 2. Thickened appearance of a few distal small bowel loops which may be related to reactive enteritis. Mild dilatation of several small bowel loops can be seen with developing ileus or partial small bowel obstruction. 3. Pneumatosis involving the ascending colon which is nonspecific and can be seen with bowel ischemia amongst other etiologies. 4. Small amount of ascites. THIS REPORT CONTAINS FINDINGS THAT MAYBE CRITICAL TO PATIENT CARE: The findings were verbally discussed via telephone conference with Dr. Bray by Dr. Lima at 2317 hours central time on February 07, 2024. The results were acknowledged and understood. Hepatic steatosis. Electronically signed by: Florentin Lima MD 02/07/2024 11:27 PM PETROGRAPHY TEACHER RP. 23:44 Differential Diagnosis altered mental status, sepsis, flu. Data reviewed: vital signs, sp4 nurses notes, old medical records, lab test result(s), EKG, radiologic studies, CT scan. 02/07 00:21 Consideration of Admission/Observation Escalation of care including sp4 admission/observation considered. Management of patient was discussed with the following: Organ Tuner: General Surgery at [facility] . 01:08 ED course: Patient will receive total of 3 L normal saline bolus. Sepsis reevaluation sp4 complete. 30/kg bolus of fluid indicated for sepsis will be satisfied. . 01:09 ED course: Patient was discussed with Dr. Galeano with general surgery who recommended sp4 transfer out for assessment by interventional radiology for potential percutaneous drainage of fluid collection consistent with intra-abdominal abscess next to patient's sigmoid colon. . 02/06 18:46 Order name: CBC with Diff; Complete Time: 19:58 7 02/06 18:46 Order name: CMP; Complete Time: 19:58 7 02/06 18:46 Order name: Lipase; Complete Time: 19:58 7 02/06 18:52 Order name: UAM; Complete Time: 23:33 rt 02/06 18:52 Order name: Test, Urine; Complete Time: 23:33 rt 02/06 23:49 Order name: Lactate w/ 2H reflex if indic.; Complete Time: 01:03 kmf 02/07 00:20 Order name: Blood Culture Adult (2) sp4 02/06 18:52 Order name: CT Abd/Pelvis - IV Contrast Only rt 02/06 18:46 Order name: IV Saline Lock; Complete Time: 18:46 7 02/06 18:46 Order name: Labs collected and sent; Complete Time: 18:46 7 02/06 23:20 Order name: NPO sp4 Administered Medications: 02/06 18:55 Drug: Lactulose PO 30 grams 45 ml PO once Volume: 45 ml; Route: PO; rs5 20:47 Follow up: Response: No adverse reaction br2 18:55 Drug: Ketorolac IVP 15 mg IVP once Route: IVP; Site: right antecubital; rs5 20:47 Follow up: Response: No adverse reaction br2 18:55 Drug: Dicyclomine IM 20 mg IM once Route: IM; Site: left deltoid; rs5 20:48 Follow up: Response: No adverse reaction br2 18:55 Drug: NS 0.9% IV 1000 ml IV at 1000 ml once; to be given as a bolus over 60 minutes rs5 Route: IV; Rate: 1000 ml; Site: right antecubital; 20:00 Follow up: IV Status: Completed infusion; IV Intake: 1000ml br2 18:55 Drug: metoCLOPramide IVP 10 mg IVP once; over 1 to 2 minutes Route: IVP; Site: right rs5 antecubital; 20:48 Follow up: Response: No adverse reaction br2 18:55 Drug: diphenhydrAMINE IVP 25 mg IVP once Route: IVP; Site: right antecubital; rs5 20:48 Follow up: Response: No adverse reaction br2 19:24 Drug: fentaNYL (PF) IVP 50 mcg IVP once Route: IVP; Site: right antecubital; rs5 20:48 Follow up: Response: No adverse reaction; Pain is decreased br2 02/07 00:38 Drug: Piperacillin-Tazobactam IVPB 3.375 grams IVPB once over 60 mins; (mix in NS 100 br2 mL) Route: IVPB; Infused Over: 60 mins; Site: right antecubital; 03:02 Follow up: Response: No adverse reaction; IV Status: Completed infusion; IV Intake: br2 100ml 00:38 Drug: fentaNYL (PF) IVP 100 mcg IVP once Route: IVP; Site: right antecubital; br2 03:02 Follow up: Response: No adverse reaction br2 00:38 Drug: NS 0.9% IV 1000 ml IV at 1 bolus Per protocol; to be given as a bolus over 60 br2 minutes Route: IV; Rate: 1 bolus; Site: right antecubital; 03:03 Follow up: IV Status: Completed infusion; IV Intake: 1000ml br2 00:38 Drug: Ondansetron IVP 4 mg IVP once; over 2 minutes Route: IVP; Site: right antecubital;br2 00:38 Drug: NS 0.9% IV 1000 ml IV at 1 bolus Per protocol; to be given as a bolus over 60 br2 minutes Route: IV; Rate: 1 bolus; Site: right antecubital; 01:47 Drug: morphine IVP or IV 4 mg IVP once over 4 mins Route: IVP; Infused Over: 4 mins; br2 Site: right antecubital; 03:04 Follow up: Response: No adverse reaction br2 02:30 Drug: NS 0.9% with KCl IV 20 mEq/L 1000 ml IV at 125 calculated rate continuous Route: br2 IV; Rate: 125 calculated rate; Site: right antecubital; 03:03 Follow up: IV Status: Infusion continued upon transfer; IV Intake: 75ml br2 02:50 Not Given (Physician Discretion): ns 0.9% with kcl40 meq/l 1000 ml IV at 125 ml/hr br2 continuous Disposition Summary: 02/07/24 23:44 Transfer Ordered Notes: Transfer Location: [facility] sp4 Reason: Higher level of care sp4 Condition: Stable sp4 Problem: new sp4 Symptoms: have improved sp4 Accepting Physician: [facility] attending surgeon(02/08/24 03:41) br2 Diagnosis - Sigmoid colon abscess, sigmoid colon perforation, intra-abdominal free air, partial sp4 small bowel obstruction, ascending colon pneumatosis - Severe sepsis without septic shock sp4 Forms: - Medication Reconciliation Form sp4 - SBAR form sp4 Signatures: Dispatcher [employer] EDMS Marlyn Brown, RN RN ss Magdaleno Jin RN RN jl7 Iqra Buck RN RN vc1 Dequan Spence MD MD rt Mateusz Wheatley RN RN rs5 Demetrio Bray MD MD sp4 Delmis William RN RN br2 Corrections: (The following items were deleted from the chart) 03:41 02/06 23:44 [facility] attending surgeon sp4 br2 02/07 03:41 03:41 [facility] attending surgeon br2 br2
--- NOTE | 2024-02-07 23:44 | ER ---
Nurse's Notes [facility] Name: Rochelle Weir Age: 38 yrs Sex: Female : 1985 Arrival Date: 02/07/2024 Time: 17:53 Bed 19 Private MD: Diagnosis: Sigmoid colon abscess, sigmoid colon perforation, intra-abdominal free air, partial small bowel obstruction, ascending colon pneumatosis;Severe sepsis without septic shock Presentation: 02/06 18:09 Chief complaint: Patient states: a few days go abdominal pain x4 quadrants. Has not had ss a BM in 4-5 days. "I feel like my intestines are in knots". Coronavirus screen: Client denies travel out of the [place] in the last 14 days. Ebola Screen: Patient negative for fever greater than or equal to 101.5 degrees Fahrenheit, and additional compatible Ebola Virus Disease symptoms Patient denies exposure to infectious person. Patient denies travel to an Ebola-affected area in the 21 days before illness onset. No symptoms or risks identified at this time. Initial Sepsis Screen: Does the patient meet any 2 criteria? RR > 20 per min. HR > 90 bpm. Does the patient have a suspected source of infection? No. Patient's initial sepsis screen is negative. Risk Assessment: Do you want to hurt yourself or someone else? Patient reports no desire to harm self or others. Onset of symptoms was February 05, 2024. 18:09 Method Of Arrival: Wheelchair ss 18:09 Acuity: TRAV 3 ss Triage Assessment: 18:11 Pain: Complains of pain in abdomen. ss 18:11 General: Appears distressed, uncomfortable, Behavior is cooperative. EENT: No signs ss and/or symptoms were reported regarding the EENT system. Neuro: Level of Consciousness is awake, alert, obeys commands, Oriented to person, place, time, situation. Cardiovascular: Patient's skin is warm and dry. Respiratory: Airway is patent Respiratory effort is even, unlabored, Respiratory pattern is regular, symmetrical. GI: Abdomen is round non-distended, Reports lower abdominal pain, upper abdominal pain, constipation. : No signs and/or symptoms were reported regarding the genitourinary system. Derm: No signs and/or symptoms reported regarding the dermatologic system. Musculoskeletal: No signs and/or symptoms reported regarding the musculoskeletal system. Historical: - Allergies: 18:11 Clindamycin; ss - PMHx: 18:11 None; ss - PSHx: 18:11 section; ss - Immunization history:: Flu vaccine is not up to date. - Infectious Disease History:: Denies. - Social history:: Smoking status: Patient reports the use of cigarette tobacco products, smokes one pack cigarettes per day. Patient uses alcohol, occasionally. Patient uses street drugs, marijuana. - Family history:: not pertinent. Assessment: 19:20 Reassessment: Patient and/or family updated on plan of care and expected duration. Pain br2 level reassessed. Patient is alert, oriented x 3, equal unlabored respirations, skin warm/dry/pink. General: Appears uncomfortable, Behavior is calm, cooperative. Pain: Complains of pain in abdomen Pain does not radiate. Pain currently is 10 out of 10 on a pain scale. Quality of pain is described as aching, crampy. Neuro: Hoffmann Agitation-Sedation Scale (RASS): 0 - Alert and Calm Level of Consciousness is awake, alert, Oriented to person, place, time, situation. Cardiovascular: Capillary refill < 3 seconds. Respiratory: Airway is patent Respiratory effort is even, unlabored, Respiratory pattern is regular, symmetrical. GI: Abdomen is round Bowel sounds present X 4 quads. hypoactive in right upper quadrant, left upper quadrant, right lower quadrant and left lower quadrant Abdomen is tender to palpation X 4 quads. in right upper quadrant, left upper quadrant, right lower quadrant and left lower quadrant. : No signs and/or symptoms were reported regarding the genitourinary system. EENT: No signs and/or symptoms were reported regarding the EENT system. Derm: No signs and/or symptoms reported regarding the dermatologic system. Musculoskeletal: No signs and/or symptoms reported regarding the musculoskeletal system. 20:09 Reassessment: Patient and/or family updated on plan of care and expected duration. Pain br2 level reassessed. Patient is alert, oriented x 3, equal unlabored respirations, skin warm/dry/pink. pt resting with eyes closed Patient states feeling better. Patient states symptoms have improved. 21:07 Reassessment: No changes from previously documented assessment. Patient and/or family br2 updated on plan of care and expected duration. Pain level reassessed. Patient is alert, oriented x 3, equal unlabored respirations, skin warm/dry/pink. 21:57 Reassessment: No changes from previously documented assessment. Patient and/or family br2 updated on plan of care and expected duration. Pain level reassessed. Patient is alert, oriented x 3, equal unlabored respirations, skin warm/dry/pink. 22:17 Reassessment: PT AWAKE, C/O OF ABDOMINAL PAIN. OUT OF BED TO BATHROOM. br2 Vital Signs: 18:09 BP 137 / 107; Pulse 143; Resp 30; Temp 98.9(O); Pulse Ox 99% on R/A; MAP 116 mmHg; ss Weight 81.65 kg; Height 5 ft. 6 in. ; Pain 10/10; 19:30 BP 152 / 93; Pulse 106; Resp 21 S; Pulse Ox 94% on R/A; Pain 10/10; br2 20:10 BP 149 / 93; Pulse 116; Resp 22 S; Pulse Ox 97% on R/A; br2 21:30 BP 151 / 94; Pulse 116; Resp 18 S; Pulse Ox 99% on R/A; br2 18:09 Body Mass Index 29.05 (81.65 kg, 167.64 cm) ss 18:09 Pain Scale: Adult ss 19:30 Pain Scale: Adult br2 ED Course: 17:55 Patient arrived in ED. mr 18:11 Triage completed. ss 18:11 Dequan Spence MD is Attending Physician. rt 18:11 Arm band placed on right wrist. ss 18:31 Mateusz Wheatley RN is Primary Nurse. rs5 18:46 Initial lab(s) drawn, by in, sent to lab. Inserted saline lock: 20 gauge in right jl7 antecubital area, using aseptic technique. Blood collected. Flushed with 10 mL NS. 19:41 Primary Nurse role handed off by Mateusz Wheatley RN jl7 20:04 Attending Physician role handed off by Dequan Spence MD sp4 20:04 Demetrio Bray MD is Attending Physician. sp4 20:09 Delmis William RN is Primary Nurse. br2 20:38 Radiology exam delayed due to test not completed at this time. sj 21:45 CT Abd/Pelvis - IV Contrast Only In Process Unspecified. EDMS 23:45 initiated transfer with Nic Garay\\ [facility]. kmf 02/07 00:16 Lactate w/ 2H reflex if indic. Sent. oe 01:06 pt [address] [facility] by Dr. Tesfaye Alcala \\T\\ 0021. Admin approval given by Nic \\T\\ km f 0040. Pt will go to room \\T\\[id number]. Number for nurse to nurse report [phone]. 01:07 Blood Culture Adult (2) Sent. br2 02:18 Blood Culture Adult (2) Sent. br2 Administered Medications: 02/06 18:55 Drug: Lactulose PO 30 grams 45 ml PO once Volume: 45 ml; Route: PO; rs5 20:47 Follow up: Response: No adverse reaction br2 18:55 Drug: Ketorolac IVP 15 mg IVP once Route: IVP; Site: right antecubital; rs5 20:47 Follow up: Response: No adverse reaction br2 18:55 Drug: Dicyclomine IM 20 mg IM once Route: IM; Site: left deltoid; rs5 20:48 Follow up: Response: No adverse reaction br2 18:55 Drug: NS 0.9% IV 1000 ml IV at 1000 ml once; to be given as a bolus over 60 minutes rs5 Route: IV; Rate: 1000 ml; Site: right antecubital; 20:00 Follow up: IV Status: Completed infusion; IV Intake: 1000ml br2 18:55 Drug: metoCLOPramide IVP 10 mg IVP once; over 1 to 2 minutes Route: IVP; Site: right rs5 antecubital; 20:48 Follow up: Response: No adverse reaction br2 18:55 Drug: diphenhydrAMINE IVP 25 mg IVP once Route: IVP; Site: right antecubital; rs5 20:48 Follow up: Response: No adverse reaction br2 19:24 Drug: fentaNYL (PF) IVP 50 mcg IVP once Route: IVP; Site: right antecubital; rs5 20:48 Follow up: Response: No adverse reaction; Pain is decreased br2 02/07 00:38 Drug: Piperacillin-Tazobactam IVPB 3.375 grams IVPB once over 60 mins; (mix in NS 100 br2 mL) Route: IVPB; Infused Over: 60 mins; Site: right antecubital; 03:02 Follow up: Response: No adverse reaction; IV Status: Completed infusion; IV Intake: br2 100ml 00:38 Drug: fentaNYL (PF) IVP 100 mcg IVP once Route: IVP; Site: right antecubital; br2 03:02 Follow up: Response: No adverse reaction br2 00:38 Drug: NS 0.9% IV 1000 ml IV at 1 bolus Per protocol; to be given as a bolus over 60 br2 minutes Route: IV; Rate: 1 bolus; Site: right antecubital; 03:03 Follow up: IV Status: Completed infusion; IV Intake: 1000ml br2 00:38 Drug: Ondansetron IVP 4 mg IVP once; over 2 minutes Route: IVP; Site: right antecubital;br2 00:38 Drug: NS 0.9% IV 1000 ml IV at 1 bolus Per protocol; to be given as a bolus over 60 br2 minutes Route: IV; Rate: 1 bolus; Site: right antecubital; 01:47 Drug: morphine IVP or IV 4 mg IVP once over 4 mins Route: IVP; Infused Over: 4 mins; br2 Site: right antecubital; 03:04 Follow up: Response: No adverse reaction br2 02:30 Drug: NS 0.9% with KCl IV 20 mEq/L 1000 ml IV at 125 calculated rate continuous Route: br2 IV; Rate: 125 calculated rate; Site: right antecubital; 03:03 Follow up: IV Status: Infusion continued upon transfer; IV Intake: 75ml br2 02:50 Not Given (Physician Discretion): ns 0.9% with kcl40 meq/l 1000 ml IV at 125 ml/hr br2 continuous Intake: 02/06 20:00 IV: 1000ml; Total: 1000ml. br2 02/07 03:02 IV: 100ml; Total: 1100ml. br2 03:03 IV: 1000ml; Total: 2100ml. br2 03:03 IV: 75ml; Total: 2175ml. br2 Outcome: 02/06 23:44 ER care complete, transfer ordered by MD. edwards 02/07 03:41 Patient left the ED. br2 Signatures: Dispatcher [employer] EDCA Shalonda Powell, Corrie Real Shelby, RN RN ss Jean Paul Daugherty Jahala RN RN jl7 Dequan Spence MD MD rt Mateusz Wheatley RN RN rs5 Demetrio Bray MD MD sp4 Dana Sky [facility] Delmis William RN RN br2 Corrections: (The following items were deleted from the chart) 01:29 00:38 fentaNYL (PF) IVP 100 mcg IVP in right antecubital br2 br2 02:50 02:00 NS 0.9% with KCl IV 40 mEq/L 1000 ml IV at 125 ml/hr in right antecubital br2 br2
--- NOTE | 2024-02-08 00:13 | RAD REPORT ---
CT ABDOMEN PELVIS WITH IV CONTRAST Exam date: February 07, 2024 Comparison: CT abdomen pelvis September 16, 2021 Indication: Abdominal pain Technique: Multiple helical axial images were obtained through the abdomen and pelvis using intravenous contrast . Coronal and sagittal reformatted images were obtained. All CT scans at this facility use dose modulation, iterative reconstruction, and/or weight-based dosi ng when appropriate to reduce radiation dose to as low as reasonably achievable. Findings: Lung bases: [Mild right basilar atelectasis noted]. Liver: [There is low attenuation suggesting fatty changes.] Gallbladder/biliary: [Appears unremarkable] Pancreas: [Unremarkable. No evidence of ductal enlargement.] Spleen: Appears unremarkable. No splenomegaly. Adrenals: Unremarkable. Kidneys and ureters: [No evidence of hydronephrosis. Normal enhancement.] Bladder: Unremarkable. Pelvic organs: Unremarkable. Bowel: [There is a thickened appearance of the sigmoid colon with adjacent stranding suggesting colit is. There is a 3.6 cm x 2.5 cm (axial) by 3 cm (craniocaudal) fluid/air collection along the wall of the thickened sigmoid colon (series 201, image 70) which may be related to localized perforation, developing abscess. Thickened appearance of a few distal small bowel loops near the sigmoid colon noted suggesting reactive enteritis. There is pneumatosis involving the ascending colon. There are a few dilated distal small bowel loops which could be related to ileus or partial obstruction.] Appendix appears unremarkable. There is mesenteric haziness in the lower abdomen and pelvis compatibl e with inflammatory changes/edema with peritoneal enhancement/thickening. Vasculature: Unremarkable. Peritoneum: There is a trace amount of free intraperitoneal air. There is a small amount of ascites. Lymph nodes: Unremarkable. Soft tissues: Unremarkable. Bones: Unremarkable. Impression: 1. Thickened appearance of the sigmoid colon suggesting colitis with extensive adjacent inflammatory changes. Small amount of free intraperitoneal air suggesting bowel perforation. Small fluid/air collection abutting the thickened sigmoid colon may be related to localized perforation, developing a bscess. 2. Thickened appearance of a few distal small bowel loops which may be related to reactive enteritis. Mild dilatation of several small bowel loops can be seen with developing ileus or partial small bowel obstruction. 3. Pneumatosis involving the ascending colon which is nonspecific and can be seen with bowel ischemia amongst other etiologies. 4. Small amount of ascites. THIS REPORT CONTAINS FINDINGS THAT MAY BE CRITICAL TO PATIENT CARE: The findings were verbally discus sed via telephone conference with Dr. Bray by Dr. Lima at 2317 hours central time on February 07, 2024. The results were acknowledged and understood. Hepatic steatosis. Electronically signed by: Florentin Lima MD 02/07/2024 11:27 PM [facility] Due to temporary technical issues with the PACS/Nujira reporting system, reports are being barb d by the in-house radiologist without review as a courtesy to ensure prompt reporting the interpreting radiologist is fully responsible for the content of the report. Transcribed Date/Time: 02/08/2024 12:13 AM
[2024-02-08] MEDS ORDERED: ONDANSETRON 4 MG/2 ML VIAL ONE (00:15)
[2024-02-08] MEDS ORDERED: PIPERACIL/TAZO 3.375 GM VIAL IV ONE (00:16)
[2024-02-08] MEDS ORDERED: NA CHLORIDE 0.9% 1,000 ML ONE (00:16)
[2024-02-08] MEDS ORDERED: FENTANYL CITR 100 MCG/2 ML ONE ×2 (00:16→02:23)
[2024-02-08] MEDS ORDERED: NA CHLORIDE 0.9% 100 ML ONE (00:17)
[2024-02-08] MEDS ORDERED: MORPHINE 4 MG/ML SYR ONE (01:31)
[2024-02-08] MEDS ORDERED: NS KCL 20MEQ 1,000 ML IV ONE (02:37)
[2024-02-08 07:04] VITALS: TEMP 98.9
[2024-02-08 07:22] VITALS: BP 151/94; O2SAT 99
== END 2024-02-08 03:41 | disposition short-term general hospital (02) ==
LOC: ER 17:53
DX: K63.0 Abscess of intestine (principal); R65.20 Severe sepsis without septic shock; K63.1 Perforation of intestine (nontraumatic); K56.600 Partial intestinal obstruction, unspecified as to cause; K63.89 Other specified diseases of intestine; K66.8 Other specified disorders of peritoneum; F17.210 Nicotine dependence, cigarettes, uncomplicated
CPT/HCPCS: 96365; 96361; 87040 ×2; 85025; 81001; 36415; 87205; 81025; 83605; 83690; 80053; 74177; 96375; 96372; 99284; 96366; Q9967; J2765; J0500; J1200; J2543; J3010 ×3; J2405; J7030 ×2; J3480

== ENCOUNTER 2024-03-17 12:52 | Emergency (ER) | payer OTHER ==
[2024-03-17] MEDS ORDERED: NA CHLORIDE 0.9% 1,000 ML ONE ×2 (13:44→16:34)
[2024-03-17] MEDS ORDERED: FAMOTIDINE 20 MG/2 ML VIAL IV ONE (13:44)
[2024-03-17] MEDS ORDERED: DICYCLOMINE HCL 20 MG/2 ML AMP IM ONE (13:44)
[2024-03-17] MEDS ORDERED: ONDANSETRON 4 MG/2 ML VIAL ONE (13:44)
[2024-03-17] MEDS ORDERED: FENTANYL CITR 100 MCG/2 ML ONE ×3 (13:52→17:25)
[2024-03-17 13:56] LABS: Absolute Basophils 0.1 K/uL (0-0.5); Absolute Lymphocytes (CBC) 1.5 K/uL (0.7-4.9); Absolute Monocytes 0.2 K/uL (0.1-1.3); Absolute Neutrophil 5.9 K/uL (1.8-8.0); Basophils % 0.7 % (0-1.3); Eosinophils % 0.2 % (0-4.4); Hematocrit 37.8 % (36.0-45.0); Hemoglobin 12.5 g/dL (12.0-15.0); Lymphocytes % 19.5 % (15.3-44.8); MCH 31.5 pg (27.0-35.0); MCHC 33.1 g/dL (32.0-36.0); MPV 7.7 fL (7.6-11.3); Monocytes % 3.1 % (3.3-12.3); Neutrophils % 76.5 % (41.7-73.7); Platelets 278 thou/uL (152-406); RBC Red Blood Cell Count 3.97 M/uL (3.86-4.86); Red Cell Distribution Width 14.3 % (12.1-15.2)
--- NOTE | 2024-03-17 14:15 | RAD REPORT ---
EXAM: XR of the abdomen HISTORY: Abdominal pain ABD PAIN COMPARISON: 02/07/2024 FINDINGS: XR of the abdomen shows a nonspecific, nonobstructive bowel gas pattern. No suspicious le cifications are seen. Skin jackie are present. Mild lumbar degenerative changes. IMPRESSION: Unremarkable exam
[2024-03-17 15:18] LABS: Albumin 3.5 g/dL (3.4-5.0); Albumin/Globulin Ratio 0.9 (1.1-1.8); Anion Gap 8.3 mEq/L (5.0-15.0); Bilirubin Total 0.4 mg/dL (0.2-1.0); Globulin 3.7 g/dL (2.3-3.5); Potassium 4.3 mEq/L (3.5-5.1); Protein, Total 7.2 g/dL (6.4-8.2)
--- NOTE | 2024-03-17 15:24 | RAD REPORT ---
EXAM: Right upper quadrant ultrasound. CLINICAL HISTORY: ABD PAIN COMPARISON: None. FINDINGS: Gallbladder: Normal. Bile ducts: No intrahepatic or extrahepatic biliary dilatation. Common bile duct measures 5 mm. Limited imaging of the liver shows no concerning finding. IMPRESSION: Unremarkable exam.
[2024-03-17] MEDS ORDERED: droPERidol 5 MG/2 ML VIAL ONE (15:50)
--- NOTE | 2024-03-17 16:07 | EDPHYS ---
Physician Documentation [facility] Name: Rochelle Weir Age: 38 yrs Sex: Female : 1985 Arrival Date: 03/17/2024 Time: 12:52 Bed 5 Private MD: ED Physician Amaya Payne HPI: 03/17 13:20 This 38 yrs old Female presents to ER via Wheelchair with complaints of Abdominal Pain, sb4 Nausea/Vomiting. 13:20 . sb4 13:20 Patient with history of colostomy to perforated sigmoid colon approximately 1 month ago sb4 presents today with complaints of nausea, vomiting, and upper abdominal pain. She states that she does get this pain occasionally, typically secondary to acid reflux. Describes it as a "churning "feeling. States that it typically improves with Bentyl. She reports normal output in her colostomy. Denies any changes in her diet. Denies any fever. States that her recovery has been uncomplicated, has a follow-up appointment with her surgeon tomorrow. 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 - Infectious Disease History:: Denies. - Social history:: Smoking status: unknown. ROS: 13:20 Constitutional: Negative for fever, chills, and weight loss, sb4 13:20 Abdomen/GI: Positive for abdominal pain, nausea and vomiting, 13:20 All other systems are negative, Exam: 13:20 Head/Face: Normocephalic, atraumatic. Eyes: Extra-ocular motions intact. Periorbital sb4 areas with no swelling, redness, or edema. ENT: Mucous membranes moist. Cardiovascular: Regular rate and rhythm with a normal S1 and S2. Respiratory: No increased work of breathing, no retractions or nasal flaring. Skin: Warm, dry with normal turgor. Normal color with no rashes, no lesions, and no evidence of cellulitis. 13:20 Constitutional: The patient appears alert, awake, in obvious pain, uncomfortable, 13:20 Abdomen/GI: Inspection: Colostomy in place, soft brown stool, Bowel sounds: normal, Palpation: soft, moderate abdominal tenderness, in the right upper quadrant and left upper quadrant, Vital Signs: 13:13 BP 151 / 119; Pulse 91; Resp 18; Temp 97.9; Pulse Ox 96% on R/A; Weight 75.75 kg; iw Height 5 ft. 6 in. ; Pain 9/10; 14:01 BP 128 / 104; Pulse 89; Resp 18; Pulse Ox 97% on R/A; Pain 9/10; ld1 14:57 BP 132 / 89; Pulse 77; Resp 17; Pulse Ox 100% on R/A; ll1 16:16 BP 132 / 98; Pulse 93; Resp 17; Temp 97.3; Pulse Ox 100% ; Pain 6/10; ll1 17:18 BP 151 / 96; Pulse 97; Resp 18; Pulse Ox 100% on R/A; ll1 18:35 BP 136 / 96; Pulse 91; Resp 18; Pulse Ox 100% on R/A; ld1 13:13 Body Mass Index 26.95 (75.75 kg, 167.64 cm) iw 13:13 Pain Scale: Adult iw 14:01 Pain Scale: Adult ld1 16:16 Pain Scale: Adult ll1 MDM: 13:06 Medical Screening Exam initiated sb4 15:30 Data reviewed: vital signs, nurses notes, lab test result(s), radiologic studies. Test sb4 considered but Not performed: CT: abdomen/pelvis, CT currently unavailable - indefinitely . 16:18 ED course: patient still reporting n/v and abdominal pain. workup thus far is negative. sb4 we do not have a functioning CT machine at this point. will attempt transfer to [facility] where CT is available and where her surgeon is. Patient is unsure who her surgeon is. 03/17 13:18 Order name: CBC with Diff; Complete Time: 13:57 sb4 03/17 13:18 Order name: CMP; Complete Time: 15:19 sb4 03/17 13:18 Order name: Lipase; Complete Time: 15:19 sb4 03/17 13:18 Order name: Abdomen 1 View (KUB) XRAY; Complete Time: 14:16 sb4 03/17 15:01 Order name: US Abdomen Limited; Complete Time: 15:25 sb4 03/17 13:18 Order name: IV Saline Lock; Complete Time: 13:52 sb4 03/17 13:18 Order name: Labs collected and sent; Complete Time: 13:52 sb4 03/17 14:03 Order name: Labs - recollect needed: recollect green top; Complete Time: 14:45 bd 03/17 15:24 Order name: PO challenge; Complete Time: 15:27 sb4 Administered Medications: 13:50 Drug: Famotidine IVP 20 mg IVP once; dilute with 10 mL 0.9% NaCl; give over 2 minutes ld1 Route: IVP; Site: right wrist; 13:59 Follow up: Response: No adverse reaction ld1 13:50 Drug: NS 0.9% IV 1000 ml IV at 1 bolus Per protocol; to be given as a bolus over 60 ld1 minutes Route: IV; Rate: 1 bolus; Site: right wrist; 13:59 Follow up: Response: No adverse reaction; IV Status: Infusion continued; IV Intake: ld1 1000ml 13:50 Drug: Dicyclomine IM 20 mg IM once Route: IM; Site: left deltoid; ld1 13:59 Follow up: Response: No adverse reaction ld1 13:50 Drug: Ondansetron IVP 4 mg IVP once; over 2 minutes Route: IVP; Site: right wrist; ld1 13:59 Follow up: Response: No adverse reaction ld1 13:59 Drug: fentaNYL (PF) IVP 50 mcg IVP once Route: IVP; Site: right wrist; ld1 15:06 Follow up: Response: No adverse reaction; Pain is decreased ll1 15:06 Drug: fentaNYL (PF) IVP 50 mcg IVP once {Note: pain 7/10 RASS 1+.} Route: IVP; Site: ll1 right wrist; 16:18 Follow up: Response: No adverse reaction; Pain is decreased; RASS: Alert and Calm (0) ll1 15:54 Drug: Droperidol IVP 2.5 mg IVP once Route: IVP; Site: right forearm; jb4 16:18 Follow up: Response: No adverse reaction ll1 16:28 Drug: metoCLOPramide IVP 10 mg IVP once; over 1 to 2 minutes Route: IVP; Site: right ll1 wrist; 17:23 Follow up: Response: No adverse reaction iw 16:40 Drug: NS 0.9% IV 1000 ml IV at 100 ml once; to be given as a bolus over 60 minutes ll1 Route: IV; Rate: 100 ml; Site: right wrist; 17:22 Not Given (Patient Refused): morphineor iv 4 mg IVP once over 4 mins ll1 17:30 Drug: Promethazine IVP 12.5 mg IVP once Route: IVP; Site: right wrist; ll1 17:30 Drug: fentaNYL (PF) IVP 50 mcg IVP once Route: IVP; Site: right wrist; ll1 Disposition Summary: 03/17/24 16:07 Transfer Ordered Notes: Transfer Location: [facility] sb4 Reason: Higher level of care sb4 Condition: Fair sb4 Problem: new sb4 Symptoms: are unchanged sb4 Accepting Physician: Dr. Garnica(03/17/24 18:35) ld1 Diagnosis - Intractable abdominal pain, nausea, and vomiting s/p bowel resection sb4 Forms: - Medication Reconciliation Form sb4 - SBAR form sb4 Signatures: Dispatcher [employer] EDMS Keri Diamond Irene, RADHA GARCIA iw Tong Miller RN RN jb4 Kendy Lew RN RN ll1 Rosana Schmidt RN RN ld1 Alberta Padilla PA-C PA-C sb4 Corrections: (The following items were deleted from the chart) 13:15 13:15 PSHx: colon resection ( section); iw iw 13:18 13:18 CBC+H.LAB.BRZ ordered. EDMS EDMS 13:18 13:18 COMPREHENSIVE METABOLIC PANEL+C.LAB.BRZ ordered. EDMS EDMS 13:18 13:18 LIPASE+C.LAB.BRZ ordered. EDMS EDMS 17:03 16:07 hospitalist sb4 sb4 18:35 17:03 Dr. Garnica sb4 ld1
--- NOTE | 2024-03-17 16:07 | ER ---
Nurse's Notes [facility] Name: Rochelle Weir Age: 38 yrs Sex: Female : 1985 Arrival Date: 03/17/2024 Time: 12:52 Bed 5 Private MD: Diagnosis: Intractable abdominal pain, nausea, and vomiting s/p bowel resection Presentation: 03/17 13:13 Chief complaint: Patient states: n/v, stomach churning since this morning , s/p colon iw resection a month ago was transferred to [facility]. Coronavirus screen: At this time, the client does not indicate any symptoms associated with coronavirus-19. Ebola Screen: No symptoms or risks identified at this time. Initial Sepsis Screen: Does the patient meet any 2 criteria? No. Patient's initial sepsis screen is negative. Does the patient have a suspected source of infection? No. Patient's initial sepsis screen is negative. Risk Assessment: Do you want to hurt yourself or someone else? Patient reports no desire to harm self or others. Onset of symptoms was March 17, 2024. 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 - Infectious Disease History:: Denies. - Social history:: Smoking status: unknown. Screenin:30 [facility] ED Fall Risk Assessment (Adult) History of falling in the last 3 months, ll1 including since admission No falls in past 3 months (0 pts) Confusion or Disorientation No (0 pts) Intoxicated or Sedated No (0 pts) Impaired Gait Yes (1 pt) Mobility Assist Device Used Yes (1 pt) Altered Elimination Yes (1 pt) Score/Fall Risk Level 3 or more points = High Risk Maintained a safe environment, Hourly rounding (assess needs \T\ fall precautionary measures) done, Used ambulatory aids as needed (educated on \T\ assisted with). Abuse screen: Denies threats or abuse. Nutritional screening: No deficits noted. Tuberculosis screening: No symptoms or risk factors identified. Assessment: 13:51 General: Appears distressed, uncomfortable, ill, Behavior is cooperative, appropriate ll1 for age, agitated. Pain: Complains of pain in abdomen Pain currently is 10 out of 10 on a pain scale. Quality of pain is described as aching, crampy, pressure. GI: Reports upper abdominal pain, cramping, nausea, vomiting. 14:01 Reassessment: Pt C/O Epigastric pain. Notified ERP. See MAR for orders. ld1 15:00 Reassessment: No changes from previously documented assessment. Patient and/or family iw updated on plan of care and expected duration. Pain level reassessed. nausea is better pain 7/10. 15:27 Reassessment: No changes from previously documented assessment. given water for PO ll1 challenge. Patient states she cant drink it, SISI Bates informed. 16:17 Reassessment: No changes from previously documented assessment. Patient and/or family ll1 updated on plan of care and expected duration. Pain level reassessed. Patient is alert, oriented x 3, equal unlabored respirations, skin warm/dry/pink. 16:40 Reassessment: No changes from previously documented assessment. Patient and/or family ll1 updated on plan of care and expected duration. Pain level reassessed. 17:18 Reassessment: No changes from previously documented assessment. Patient and/or family ll1 updated on plan of care and expected duration. Pain level reassessed. Requests more pain and nausea medicine. Meg LAIRD informed. 17:30 Reassessment: No changes from previously documented assessment. Patient and/or family ll1 updated on plan of care and expected duration. Pain level reassessed. Patient is alert, oriented x 3, equal unlabored respirations, skin warm/dry/pink. 17:45 GI: Bowel sounds present X 4 quads. Abd is soft and non tender X 4 quads. ll1 18:35 Reassessment: No changes from previously documented assessment. Patient and/or family ld1 updated on plan of care and expected duration. Pain level reassessed. Patient is alert, oriented x 3, equal unlabored respirations, skin warm/dry/pink. Vital Signs: 13:13 BP 151 / 119; Pulse 91; Resp 18; Temp 97.9; Pulse Ox 96% on R/A; Weight 75.75 kg; iw Height 5 ft. 6 in. ; Pain 9/10; 14:01 BP 128 / 104; Pulse 89; Resp 18; Pulse Ox 97% on R/A; Pain 9/10; ld1 14:57 BP 132 / 89; Pulse 77; Resp 17; Pulse Ox 100% on R/A; ll1 16:16 BP 132 / 98; Pulse 93; Resp 17; Temp 97.3; Pulse Ox 100% ; Pain 6/10; ll1 17:18 BP 151 / 96; Pulse 97; Resp 18; Pulse Ox 100% on R/A; ll1 18:35 BP 136 / 96; Pulse 91; Resp 18; Pulse Ox 100% on R/A; ld1 13:13 Body Mass Index 26.95 (75.75 kg, 167.64 cm) iw 13:13 Pain Scale: Adult iw 14:01 Pain Scale: Adult ld1 16:16 Pain Scale: Adult ll1 ED Course: 12:57 Patient arrived in ED. sj2 13:02 Alberta Padilla PA-C is PHCP. sb4 13:02 Amaya Payne MD is Attending Physician. sb4 13:15 Triage completed. iw 13:45 Initial lab(s) drawn, by me, sent to lab. Inserted saline lock: 22 gauge in right ll1 wrist, using aseptic technique. Blood collected. Flushed with 10 mL NS. 13:45 Patient has correct armband on for positive identification. Bed in low position. ll1 Provided Education on: ER procedures and process. Client placed on continuous cardiac and pulse oximetry monitoring. NIBP monitoring applied. 13:51 Kendy Lew, RADHA is Primary Nurse. ll1 13:55 Abdomen 1 View (KUB) XRAY In Process Unspecified. EDMS 14:45 Lab(s) recollected, by labor relations representative, sent to lab. ll1 15:14 US Abdomen Limited In Process Unspecified. EDMS 16:13 initiated transfer to [facility]. bd 16:30 Arm band placed on. ll1 16:31 No provider procedures requiring assistance completed. ll1 17:39 pt accepted in transfer to [facility] rm [id number] Mckeon admin approval given by olga Butts RN. 17:45 Patient transferred, IV remains in place. ll1 Administered Medications: 13:50 Drug: Famotidine IVP 20 mg IVP once; dilute with 10 mL 0.9% NaCl; give over 2 minutes ld1 Route: IVP; Site: right wrist; 13:59 Follow up: Response: No adverse reaction ld1 13:50 Drug: NS 0.9% IV 1000 ml IV at 1 bolus Per protocol; to be given as a bolus over 60 ld1 minutes Route: IV; Rate: 1 bolus; Site: right wrist; 13:59 Follow up: Response: No adverse reaction; IV Status: Infusion continued; IV Intake: ld1 1000ml 13:50 Drug: Dicyclomine IM 20 mg IM once Route: IM; Site: left deltoid; ld1 13:59 Follow up: Response: No adverse reaction ld1 13:50 Drug: Ondansetron IVP 4 mg IVP once; over 2 minutes Route: IVP; Site: right wrist; ld1 13:59 Follow up: Response: No adverse reaction ld1 13:59 Drug: fentaNYL (PF) IVP 50 mcg IVP once Route: IVP; Site: right wrist; ld1 15:06 Follow up: Response: No adverse reaction; Pain is decreased ll1 15:06 Drug: fentaNYL (PF) IVP 50 mcg IVP once {Note: pain 7/10 RASS 1+.} Route: IVP; Site: ll1 right wrist; 16:18 Follow up: Response: No adverse reaction; Pain is decreased; RASS: Alert and Calm (0) ll1 15:54 Drug: Droperidol IVP 2.5 mg IVP once Route: IVP; Site: right forearm; jb4 16:18 Follow up: Response: No adverse reaction ll1 16:28 Drug: metoCLOPramide IVP 10 mg IVP once; over 1 to 2 minutes Route: IVP; Site: right ll1 wrist; 17:23 Follow up: Response: No adverse reaction iw 16:40 Drug: NS 0.9% IV 1000 ml IV at 100 ml once; to be given as a bolus over 60 minutes ll1 Route: IV; Rate: 100 ml; Site: right wrist; 17:22 Not Given (Patient Refused): morphineor iv 4 mg IVP once over 4 mins ll1 17:30 Drug: Promethazine IVP 12.5 mg IVP once Route: IVP; Site: right wrist; ll1 17:30 Drug: fentaNYL (PF) IVP 50 mcg IVP once Route: IVP; Site: right wrist; ll1 Medication: 16:30 VIS not applicable for this client. ll1 Intake: 13:59 IV: 1000ml; Total: 1000ml. ld1 Outcome: 16:07 ER care complete, transfer ordered by sb4 17:45 Transferred by ground EMS to [facility], Transfer form completed. ll1 Note: Report called to Inga Henriquez RN 17:45 Condition: stable 17:45 Instructed on the need for transfer, 18:35 Patient left the ED. ld1 Signatures: Dispatcher [employer] EDMS Keri Diamond Irene, RN RN iw Tong Miller RN RN jb4 Lewis, Lynsay, RN RN ll1 Rosana Schmidt RN RN ld1 Alberta Padilla, PA-Robyn PA-Robyn sb4 Rupal Pinedo sj2 Corrections: (The following items were deleted from the chart) 13:15 13:15 PSHx: colon resection ( section); [facility]
[2024-03-17] MEDS ORDERED: METOCLOPRAMIDE 10 MG/2mL INJ ONE (16:21)
[2024-03-17] MEDS ORDERED: NA CHLORIDE 0.9% 50 ML ONE (16:22)
[2024-03-17] MEDS ORDERED: PROMETHAZINE INJ 25 MG/ML AMP ONE (17:25)
[2024-03-17 19:22] VITALS: O2SAT 100
[2024-03-17 19:24] VITALS: TEMP 97.3
[2024-03-17 19:26] VITALS: BP 136/96
== END 2024-03-17 18:35 | disposition short-term general hospital (02) ==
LOC: ER 12:52
DX: R10.9 Unspecified abdominal pain (principal); R11.2 Nausea with vomiting, unspecified; Z98.890 Other specified postprocedural states
CPT/HCPCS: 85025; 36415; 83690; 80053; 74018; 76705; 96372; 99285; J2550; J2765; J0500; J3010 ×3; J2405; J1790; J7030 ×2